=== PATIENT | male | born 1970 | race Caucasian/White ===

== ENCOUNTER → 2017-02-06 | Outpatient (CLI) | payer OTHER ==
[~2017-02-06] MED LIST: LXP/20 PO; MLXESC PO; ZYP15 PO
== END | disposition home or self-care (01) ==
LOC: C.LAB 21:03
DX: Z04.8 Encounter for examination and observation for other specified reasons (principal)

== ENCOUNTER 2017-03-16 08:25 | Observation (INO) | payer OTHER ==
[~2017-03-16] VITALS: Ht 182.9 cm; Wt 126.7 kg
[2017-03-16] MEDS ORDERED: KETOROLAC TROMETHAMINE 30 MG/ML VIAL IV STA (08:37)
[2017-03-16] MEDS ORDERED: ONDANSETRON INJ 2 MG/ML 2 ML VIAL IV STA (08:37)
[2017-03-16] MEDS ORDERED: SODIUM CHLORIDE 0.9% 1000ML 1,000 ML IV STA (08:37)
[2017-03-16] MEDS ORDERED: PROMETHAZINE HCL INJ 6.25 MG in SODIUM CHLORIDE 0.9% 50ML 50 ML IV STA (08:39)
--- NOTE | 2017-03-16 08:45 | EMERGENCY ROOM VISIT NOTE ---
History Report prepared by Armen: Chelsea Mina Under the Supervision of: Dr. Nik Ruiz M.D. First contact with patient: 08:35 Chief Complaint: ABDOMINAL PAIN Stated Complaint: STOMACH PAIN Nursing Triage Summary: left side abdominal pain since . hx diverticulitis. "I havent eaten since " History of Present Illness The patient is a 46 year old male who presents to the Emergency Room with complaints of worsening LLQ abdominal pain for the past 2 days. He is also experiencing nausea and vomiting. The patient rates his pain as an 8/10 in severity. He has been unable to eat or sleep due to his symptoms. He states that he has not eaten or had a bowel movement for the past two days. The patient has a history of diverticulitis. A couple of years ago he had 12-14 inches of his colon removed. He has not had any problems with diverticulitis since then. He does report that he has been under a lot of stress recently. The patient denies fevers, diarrhea, and urinary symptoms. Source of History: patient Onset: 2 days ago Position: abdomen (LLQ) Symptom Intensity: 8/10 Timing: worsening Modifying Factors (Worsening): eating Associated Symptoms: + nausea, + vomiting, No fevers, No diarrhea, No urinary symptoms Review of Systems See HPI for pertinent positives & negatives. A total of 10 systems reviewed and were otherwise negative. Past Medical & Surgical Medical Problems: (1) Diverticulitis Surgical Problems: (1) History of bowel resection Family History Heart disease Social History Smoking Status: Never Smoker Alcohol Use: occasionally Marital Status: in relationship Occupation Status: employed Current/Historical Medications No Active Prescriptions or Reported Meds Allergies Coded Allergies: No Known Allergies (Unverified , 03/16/17) Physical Exam Vital Signs Date Time Temp Pulse Resp B/P (MAP) Pulse Ox O2 Delivery O2 Flow Rate FiO2 03/16/17 10:40 64 18 160/87 96 Room Air 03/16/17 10:40 66 03/16/17 09:34 78 18 146/94 97 Room Air 03/16/17 08:29 36.9 78 18 154/103 95 Room Air Physical Exam GENERAL: Patient is in no acute distress. HEENT: No acute trauma, normocephalic atraumatic, mucous membranes moist, no nasal congestion, no scleral icterus. NECK: No stridor, no adenopathy, no meningismus, trachea is midline. LUNGS: Clear to auscultation bilaterally, no wheeze, no rhonchi, breath sounds equal. HEART: Without murmurs gallops or rubs, regular rate and rhythm. ABDOMEN: Soft, LLQ tenderness, bowel sounds positive, no hernias, no peritonitis. EXTREMITIES: No cyanosis or edema, full range of motion of all the joints without pain or difficulty, no signs for acute trauma. NEUROLOGIC: Oriented x 3, no acute motor or sensory deficits, no focal weakness. SKIN: No rash, no jaundice, no diaphoresis. Medical Decision & Procedures Laboratory Results 03/16/17 08:50 Red Blood Count 4.71, Mean Corpuscular Volume 92.4, Mean Corpuscular Hemoglobin 32.7, Mean Corpuscular Hemoglobin Concent 35.4, Mean Platelet Volume 9.9, Neutrophils (%) (Auto) 72.6, Lymphocytes (%) (Auto) 16.3, Monocytes (%) (Auto) 8.5, Eosinophils (%) (Auto) 0.9, Basophils (%) (Auto) 0.1, Neutrophils # (Auto) 5.07, Lymphocytes # (Auto) 1.14, Monocytes # (Auto) 0.59, Eosinophils # (Auto) 0.06, Basophils # (Auto) 0.01 03/16/17 08:50 Test 03/16/17 08:50 03/16/17 10:41 White Blood Count 6.98 K/uL (4.8-10.8) Red Blood Count 4.71 M/uL (4.7-6.1) Hemoglobin 15.4 g/dL (14.0-18.0) Hematocrit 43.5 % (42-52) Mean Corpuscular Volume 92.4 fL (80-100) Mean Corpuscular Hemoglobin 32.7 pg (25-34) Mean Corpuscular Hemoglobin Concent 35.4 g/dl (32-36) Platelet Count 277 K/uL (130-400) Mean Platelet Volume 9.9 fL (7.4-10.4) Neutrophils (%) (Auto) 72.6 % Lymphocytes (%) (Auto) 16.3 % Monocytes (%) (Auto) 8.5 % Eosinophils (%) (Auto) 0.9 % Basophils (%) (Auto) 0.1 % Neutrophils # (Auto) 5.07 K/uL (1.4-6.5) Lymphocytes # (Auto) 1.14 K/uL (1.2-3.4) Monocytes # (Auto) 0.59 K/uL (0.11-0.59) Eosinophils # (Auto) 0.06 K/uL (0-0.5) Basophils # (Auto) 0.01 K/uL (0-0.2) RDW Standard Deviation 43.1 fL (36.4-46.3) RDW Coefficient of Variation 12.8 % (11.5-14.5) Immature Granulocyte % (Auto) 1.6 % Immature Granulocyte # (Auto) 0.11 K/uL (0.00-0.02) Urine Color YELLOW Urine Appearance CLEAR (CLEAR) Urine pH 6.5 (4.5-7.5) Urine Specific [place] 1.021 (1.000-1.030) Urine Protein NEG (NEG) Urine Glucose (UA) NEG (NEG) Urine Ketones NEG (NEG) Urine Occult Blood NEG (NEG) Urine Nitrite NEG (NEG) Urine Bilirubin NEG (NEG) Urine Urobilinogen NEG (NEG) Urine Leukocyte Esterase NEG (NEG) Anion Gap 6.0 mmol/L (3-11) Est Creatinine Clear Calc Drug Dose 136.0 ml/min Estimated GFR () 110.8 Estimated GFR (Non- 95.6 BUN/Creatinine Ratio 12.8 (10-20) Calcium Level 8.8 mg/dl (8.5-10.1) Total Bilirubin 0.5 mg/dl (0.2-1) Aspartate Amino Transf (AST/SGOT) 28 U/L (15-37) Alanine Aminotransferase (ALT/SGPT) 57 U/L (12-78) Alkaline Phosphatase 83 U/L (45-117) Total Protein 7.9 gm/dl (6.4-8.2) Albumin 4.1 gm/dl (3.4-5.0) Globulin 3.8 gm/dl (2.5-4.0) Albumin/Globulin Ratio 1.1 (0.9-2) Lipase 157 U/L (73-393) Bedside Troponin I < 0.030 ng/ml (0-0.045) Laboratory results reviewed by me. Medications Administered Medications (Trade) Dose Ordered Sig/Aaron Route Start Time Stop Time Status Last Admin Dose Admin Ondansetron HCl (Zofran Inj) 4 mg NOW STAT IV 03/16/17 08:37 03/16/17 08:39 DC 03/16/17 08:58 4 MG Sodium Chloride 1,000 ml @ 999 mls/hr Q1H1M STAT IV 03/16/17 08:37 03/16/17 09:37 DC 03/16/17 08:58 999 MLS/HR Morphine Sulfate (MoRPHine SULFATE INJ) 4 mg Q30M PRN IV 03/16/17 08:45 03/30/17 08:44 03/16/17 09:33 4 MG Ketorolac Tromethamine (Toradol Inj) 30 mg NOW STAT IV 03/16/17 08:37 03/16/17 08:39 DC 03/16/17 08:59 30 MG Promethazine HCl 6.25 mg/Sodium Chloride 50.25 ml @ 204 mls/hr NOW STAT IV 03/16/17 08:39 03/16/17 08:53 DC 03/16/17 09:09 204 MLS/HR Lorazepam (Ativan Inj) 0.5 mg NOW STAT IV 03/16/17 11:05 03/16/17 11:06 DC 03/16/17 11:11 0.5 MG Aspirin (Aspirin Chew) 324 mg NOW STAT PO 03/16/17 11:05 03/16/17 11:06 DC 03/16/17 11:11 324 MG ECG Indication: chest pain Rate (beats per minute): 68 Rhythm: normal sinus Findings: T-wave inversion (Inferior), no ectopy, other (LVH) Comparison ECG Date: 04/30/14 Change: Inferior T-wave inversions are more pronounced. ED Course 0835: The patient was evaluated in room B6. A complete history and physical exam was performed. 0837: Toradol 30 mg IV, NSS 1000 ml @ 999 mls/hr IV, Zofran 4 mg IV 0839: Promethazine HCl 6.25mg/Sodium Chloride 50.25 ml @ 204 mls/hr IV 0845: Morphine sulfate 4 mg IV - PRN 1034: The patient is complaining of left-sided chest pressure. 1103: I updated the patient. He is very anxious. 1105: Aspirin 324 mg PO, Ativan 0.5 mg IV 1115: The patient was signed out to Dr. Curry at the change of shift. Medical Decision The patient is a 46 year old male who presents to the ED with complaints of worsening LLQ abdominal pain for the past 2 days. Differential diagnoses considered include diverticulitis, colitis, appendicitis, musculoskeletal pain, renal colic, UTI, pancreatitis, hernia, abscess. There is no leukocytosis or concerning anemia. No significant electrolyte abnormalities, kidney failure, hepatitis or pancreatitis. Urinalysis does not show infection or blood. On exam, the patient was somewhat tender in the left lower quadrant. He was not toxic or febrile. The patient received IV morphine, IV Toradol, IV Phenergan and IV Zofran, he was given IV saline. The patient is awaiting a CT of the abdomen and pelvis. This has been ordered for the possibility of diverticulitis. During the patient's stay, he developed some left-sided chest pain. A chest x- ray, EKG and cardiac enzyme testing were added on to his workup. EKG did show a sinus rhythm with some inverted T waves in the inferior leads, LVH was seen, no acute GA noted. The patient received oral aspirin and IV Ativan to see if this would help his chest discomfort. At this point, the patient's case is being assumed by Dr. Curry. Please see his notes for the results of the remaining tests and for the patient's final disposition. Medication Reconcilliation Current Medication List: was personally reviewed by me Blood Pressure Screening Patient's blood pressure: Elevated blood pressure Blood pressure disposition: Elevated BP felt to be situational Impression Primary Impression: LLQ abdominal pain Scribe Attestation The scribe's documentation has been prepared under my direction and personally reviewed by me in its entirety. I confirm that the note above accurately reflects all work, treatment, procedures, and medical decision making performed by me. Departure Information Dispostion Still a Patient Prescriptions No Active Prescriptions or Reported Meds Referrals No Doctor, Assigned (PCP) Patient Instructions My [facility]
[2017-03-16] MEDS: MoRPHine SULFATE 4 MG/ML 1 ML CARP\\VIAL IV PRN ×2 (08:59→09:33)
[2017-03-16 09:08] LABS: BASO % 0.1 %; BASO ABS # 0.01 K/uL (0-0.2); COMPLETE YES; EOS % 0.9 %; HEMATOCRIT 43.5 % (42-52); IG% 1.6 %; LYMPH % 16.3 %; LYMPH ABS # 1.14 K/uL (1.2-3.4); MEAN CELL VOLUME 92.4 fL (80-100); MEAN CORPUSCULAR HEMOGLOBIN 32.7 pg (25-34); MEAN CORPUSCULAR HGB CONC 35.4 g/dl (32-36); MEAN PLATELET VOLUME 9.9 fL (7.4-10.4); MONO % 8.5 %; NEUT % 72.6 %; PLATELET COUNT 277 K/uL (130-400); RED BLOOD COUNT 4.71 M/uL (4.7-6.1); WHITE BLOOD COUNT 6.98 K/uL (4.8-10.8)
[2017-03-16 09:20] LABS: URINE APPEARANCE CLEAR (CLEAR); URINE BILIRUBIN NEG (NEG); URINE COLOR YELLOW; URINE NITRITE NEG (NEG); URINE PH 6.5 (4.5-7.5); URINE SPECIFIC GRAVITY 1.021 (1.000-1.030); UROBILINOGEN NEG (NEG); ZZUR CULT IF INDIC CLEAN CATCH NO
[2017-03-16 09:23] LABS: MANUAL MICROSCOPIC REQUIRED? NO; REVIEW REQ? NO
[2017-03-16] MEDS ORDERED: OPTIRAY 320 IV PRN (09:30)
[2017-03-16 09:45] LABS: BUN/CREATININE RATIO 12.8 (10-20); CALCIUM 8.8 mg/dl (8.5-10.1); CREATININE 0.95 mg/dl (0.60-1.40); POTASSIUM 3.7 mmol/L (3.5-5.1)
[2017-03-16 09:48] LABS: ALB/GLOB RATIO 1.1 (0.9-2)
[2017-03-16] MEDS ORDERED: LORAZEPAM 2 MG/ML 1 ML VIAL IV STA (11:05)
[2017-03-16] MEDS ORDERED: ASPIRIN 81 MG CHEW PO STA (11:05)
--- NOTE | 2017-03-16 11:08 | DIAGNOSTIC IMAGING REPORT ---
CHEST ONE VIEW PORTABLE CLINICAL HISTORY: Atypical chest pain COMPARISON STUDY: 04/28/2014 FINDINGS: The heart is borderline enlarged. It is mild central vascular prominence without evidence of overt failure. There is no lobar consolidation. There are no pleural effusions.[ IMPRESSION: AP portable study. No evidence of focal pulmonary consolidation Electronically signed by: Nguyễn Combs M.D. 03/16/2017 11:07 AM Dictated Date/Time: 03/16/2017 11:06 AM
--- NOTE | 2017-03-16 11:35 | DIAGNOSTIC IMAGING REPORT ---
CT ABD/PELVIS IV AND ORAL CONT CLINICAL HISTORY: Abdominal pain, most pronounced in the left lower quadrant COMPARISON STUDY: None. TECHNIQUE: Following the IV administration of 93 mL of Optiray-320, CT scan of the abdomen and pelvis was performed from the lung bases to the proximal femurs. Images are reviewed in the axial, sagittal, and coronal planes. IV contrast was administered without complication. A dose lowering technique was utilized adhering to the principles of ALARA. CT DOSE: 1761.10 mGy.cm FINDINGS: Lower chest: There are mild basilar atelectatic changes. Liver: There is mild hepatic steatosis. No focal masses are visualized. Gallbladder: Unremarkable. Spleen: Borderline enlarged measuring 12.3 cm Pancreas: Unremarkable. Adrenal glands: Unremarkable. Kidneys: There is symmetric renal cortical enhancement. The kidneys are normal in size without hydronephrosis. Bowel: There are no transition zones to indicate bowel obstruction. There are postsurgical changes involving the colon with a sigmoid anastomosis. There is no acute diverticulitis. By history the appendix is surgically absent. Peritoneum: There is no intraperitoneal free air or abdominal ascites. Vasculature: The abdominal aorta is normal in course and caliber. Adenopathy: None. Pelvic viscera: The bladder, and pelvic viscera are unremarkable. Skeletal structures: No destructive osseous lesions are seen. There is stranding within the left anterior abdominal wall, likely secondary to a prior surgical site. IMPRESSION: 1. No acute intra-abdominal or pelvic findings 2. No evidence of bowel obstruction. No evidence of free air 3. No evidence of acute diverticulitis 4. No acute inflammatory changes Electronically signed by: Nguyễn Combs M.D. 03/16/2017 11:33 AM Dictated Date/Time: 03/16/2017 11:29 AM
[2017-03-16] MEDS ORDERED: LABETALOL HCL IV 5 MG/ML 20ML IV STA (12:00)
[2017-03-16] MEDS ORDERED: FENTANYL CITRATE INJ 50 MCG/1 ML 2 ML VIAL IV ONE (12:00)
[2017-03-16] MEDS ORDERED: MAGNESIUM HYDROXIDE SUSP 30 ML UDC PO PRN (12:30)
[2017-03-16] MEDS ORDERED: POLYETHYLENE (MIRALAX) 17 GM PACK PO PRN (12:30)
[2017-03-16] MEDS ORDERED: ALUMINUM/MAGNESIUM/SIMETH (MAALOX MAX) 30 ML UDC PO PRN (12:30)
[2017-03-16 13:20] VITALS: Ht 182.9 cm; Wt 126.7 kg
[2017-03-16] MEDS ORDERED: ALUMINUM/MAGNESIUM SUSP 30 ML UDC PO STA (13:21)
[2017-03-16] MEDS ORDERED: POLYETHYLENE (MIRALAX) 17 GM PACK PO ONE (13:30)
[2017-03-16] MEDS ORDERED: LIDOCAINE HCL 2% VISC SOLN 20 ML UDC PO ONE (13:30)
--- NOTE | 2017-03-16 13:39 | EMERGENCY ROOM VISIT NOTE ---
ED Visit Note First contact with patient: 11:30 46 yr old male arrived earlier in day with left flank pain. Initially evluated by Dr Ruiz who ordered CT a/p for evaluation of pain. While in department developed left chest pain radiating to left shoulder/arm. Resolved with ASA/ Pain meds and intial EKG/Trop notable for inferior T wave inversions. Signed out to me awaiting CT Scan findings. CT without any acute findings. Reviewed with patient repeat trop with DC if normal vs hospitalist evaluation and he does not feel comfortable with discharge given father MD at 48. No SHOB nor other symptoms beyond CP to suspect PE. Hospitalist consulted who will bring in for further evaluation/treatment.
[2017-03-16 14:00] VITALS: BP 160/99; PULSE 72; TEMP 36.6; O2SAT 93
[2017-03-16] MEDS ORDERED: IV FLUIDS COMPLETED PRN (14:00)
[2017-03-16 14:01] LABS: ESTIMATED AVERAGE GLUCOSE 111 mg/dl; HA1C FLAG Normal (Normal)
[2017-03-16] MEDS: MoRPHine SULFATE 2 MG/ML CARP IV PRN ×2 (14:15→15:53)
[2017-03-16 14:18] LABS: PROTHROMBIN TIME (PATIENT) 10.4 SECONDS (9.0-12.0)
--- NOTE | 2017-03-16 14:33 | History and Physical ---
History & Physical Date of Service Mar 16, 2017. History & Physical obs #[id number]
[2017-03-16] MEDS ORDERED: METOPROLOL TARTRATE 25 MG TAB PO ONE (15:00)
--- NOTE | 2017-03-16 15:37 | HISTORY & PHYSICAL EXAMINATION ---
DATE OF ADMISSION: 03/16/2017 CHIEF COMPLAINT: Abdominal pain, followed by a secondary chief complaint of chest pain. HISTORY OF PRESENT ILLNESS: The patient is a very pleasant 46-year-old male, who notes that he was actually feeling pretty good earlier in the day and on , he had gone to the gym, walked about 2 miles on the treadmill, felt good during that, but then Saturday night started with left lower abdominal pain, sometimes vague, sometimes sharp enough it double him over that was very reminiscent of pain whenever he has had diverticulitis before he notes that he had very severe diverticulitis, even including resection and so got his attention. His appetite has been down. He may be felt a little bit nauseated, but he has not had any fevers, chills, or sweats. This has been going on a couple of days and whenever it was not getting better, He came to the ER for further evaluation. He notes he did vomit this morning. During his GI workup and treatment, he then had a rather abrupt onset of substernal chest pressure that radiated to his arm and jaw, probably a degree of shortness of breath and once it went away, he also then felt extremely fatigued. He notes that pressure is almost gone now, it is not totally gone, but it is definitely less than it was. The left hand is still tingling, but no other significant symptoms. He is not short of breath and he does generally feel fatigued. He notes he did feel the sensation once before. It was actually whenever he was admitted here for chest pain back in 2013 when his workup was negative. Otherwise, he has not felt those symptoms. Specifically, he notes he was not feeling anything like that on the treadmill, even on and notes that he had been exercising to his regular without any new or worse exertional symptoms. REVIEW OF SYSTEMS: Most notably positive for the fact that he is working on lifestyle change for hypertension, hyperlipidemia, and a markedly positive family history for coronary artery disease and actually was to see his PCP this coming week or at least he was having labs and then he was going to see his PCP shortly thereafter with considerations needing to start blood pressure and/or cholesterol medicines depending on how he was doing. Review of systems is otherwise negative, except for as above. PAST MEDICAL HISTORY: Includes hypertension, hyperlipidemia, diverticulitis severe enough to require resection. PAST SURGICAL HISTORY: Colon resection in 2013, appendectomy. MEDICATIONS: None, although he does note that he is on the border of needing blood pressure and cholesterol medicines, but his PCP was giving him time to work on positive lifestyle change. SOCIAL HISTORY: He chews tobacco. He was a candidate, now he is down to about a can a week and is very motivated to quit. No significant alcohol. 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 FAMILY HISTORY: Most markedly positive for his dad having had a heart attack at 48. ALLERGIES: No known drug allergies. PHYSICAL EXAMINATION: VITAL SIGNS: Temperature 36.9, pulse 78, respiratory rate 18, blood pressure 154/103, and 95% on room air. GENERAL: He is awake, alert, oriented x3, pleasant, but very fatigued appearing, otherwise in no acute distress. HEENT: Normocephalic, atraumatic. Mucous membranes are moist. CARDIOVASCULAR: Regular. No rubs, murmurs, or gallops. LUNGS: Clear to auscultation bilaterally. No rales, rhonchi, or wheezes with good effort. ABDOMEN: Soft, moderately distended, moderately tender without guarding, rebound or rigidity, mostly in the left mid and lower abdomen. He also does have some epigastric discomfort reproducible to palpation. EXTREMITIES: Show no cyanosis, clubbing or edema. SKIN: Shows no rashes. No pallor or icterus. NEUROLOGIC: Shows cranial nerves II through XII to be grossly intact. Gross motor and sensory are intact. MUSCULOSKELETAL: Exam yields no gross lesions. MENTAL STATUS: Shows good recent and remote recall. Normal mood and affect. Good judgment and insight. LABS AND DIAGNOSTICS: His EKG shows flipped T's in II, III, and aVF, although this is fairly similar to prior. His chest x-ray shows no evidence of active disease. He has mild central vascular prominence. CT abdomen and pelvis shows findings post-sigmoid anastomosis, but no acute changes. No inflammatory changes. No diverticulitis. No free air. CBC shows a white count of 6.98 with 72.6% neutrophils, hemoglobin 15.4, platelets 277. Complete metabolic panel with sodium 135, potassium 3.7, chloride 104, CO2 of 25, BUN 12, creatinine 0.95, calcium 8.8, glucose 119. His total bilirubin is 0.5 with an AST of 28, ALT 57, alkaline phosphatase 83. His troponin is less than 0.030. Total protein 7.9, albumin 4.1, lipase 157, PT of 10.4. Urinalysis is yellow, clear. Specific gravity 1.021, pH of 6.5. ASSESSMENT AND PLAN: 1. Chest pain. Given that this comes on the heels of several days of abdominal pain that appears to be related to constipation (see below) and given that it came after nausea and vomiting this morning, it is exceedingly likely that his chest pain is upper GI related and probably ties together to his lower GI. However, he is very high risk for coronary artery disease given his age, family history of hypertension, hyperlipidemia, and tobacco use and therefore, certainly will be looking this as acute coronary syndrome until proven otherwise. Fortunately, his EKG does not show markedly acute findings, the flipped T's in II, III, and aVF while they could be positive, definitely appeared to be there on prior EKGs and his troponin is negative. We will trend serial troponins and as long as they are negative, check stress echo in the morning. In terms of the upper GI distress, we will give him Maalox and viscous lidocaine and then followup for ongoing symptoms. We will also obviously be following his blood pressure, checking a lipid panel, and checking in an A1c. 2. Abdominal pain. Fortunately, while the CT does not show any worrisome findings, it does show a significant amount of stool. He does note he has not had a bowel movement since the day of onset of his symptoms and it is very likely this is constipation related. We will provide him with a bowel regimen and follow with serial exams. 3. Hyperlipidemia. Check a lipid panel. If he is not at goal for his risks or if he plugs in as such in the ACC calculator by either ACC guidelines or [place] guidelines, we discussed that since his PCP was at the brink of starting him on a statin, likely if his numbers have not improved to mitigate his risk given his other risks and family history now would be the time. 4. Hypertension. We will follow. If it is all a stress response, we will not need to utilize medications, but again much like what the lipids, it appears he has working on lifestyle change with his PCP, who was at the brink of initiating medications and if his blood pressures do not follow in line, certainly will need to be treated. We will be adding an aspirin for cardiac risks as above as well. 5. Deep venous thrombosis prophylaxis, Lovenox. 6. Mild hyponatremia noted. 7. Nonfasting hyperglycemia, checking an A1c as above.
[2017-03-16 15:47] VITALS: BP 173/122; PULSE 73; TEMP 36.7; O2SAT 97
[2017-03-16] MEDS: ONDANSETRON INJ 2 MG/ML 2 ML VIAL IV PRN (15:52)
[2017-03-16] MEDS: ENOXAPARIN 40 MG/0.4 ML SYR SC SCH (15:59)
[2017-03-16] MEDS ORDERED: FAMOTIDINE IV INJ 20 MG in DEXTROSE 5% 100ML 100 ML IV SCH (18:15)
[2017-03-16] MEDS: HYDROmorphone INJ 0.5 MG/0.5 ML SYR IV PRN (18:44)
[2017-03-16 19:44] VITALS: BP 156/102; PULSE 75; TEMP 36.7; O2SAT 94
[2017-03-16] MEDS: FAMOTIDINE IV INJ 20 MG in SYRINGE 3 ML IV SCH (19:48)
[2017-03-17] VITALS (17 sets, daily range): BP systolic 143–183; BP diastolic 79–123; PULSE 62–91; TEMP 36.7–37.5; O2SAT 89–99
[2017-03-17] MEDS: HYDROmorphone INJ 0.5 MG/0.5 ML SYR IV PRN ×5 (00:05→20:53)
[2017-03-17] MEDS ORDERED: HydrALAZINE HCL 20 MG/ML VIAL IV. PRN (01:00)
[2017-03-17] MEDS: ONDANSETRON INJ 2 MG/ML 2 ML VIAL IV PRN ×3 (01:01→17:55)
[2017-03-17] MEDS: NITROGLYCERIN 0.4 MG SL PER TAB CHARGE SL PRN ×3 (01:06→01:17)
[2017-03-17] MEDS: ACETAMINOPHEN 325 MG TAB PO PRN ×3 (01:22→15:31)
[2017-03-17] MEDS ORDERED: METOPROLOL TARTRATE 1 MG/ML VIAL IV STA (02:24)
[2017-03-17] MEDS ORDERED: NURSING VERBAL MED ORDER ONE (02:30)
[2017-03-17] MEDS ORDERED: OPTIRAY 320 IV PRN (03:00)
[2017-03-17] MEDS: FAMOTIDINE IV INJ 20 MG in SYRINGE 3 ML IV SCH ×2 (06:00→17:55)
--- NOTE | 2017-03-17 07:08 | DIAGNOSTIC IMAGING REPORT ---
SINGLE VIEW CHEST CLINICAL HISTORY: Atypical chest pain. FINDINGS: An AP, portable, upright chest radiograph is compared to study dated 03/16/2017. The examination is degraded by portable technique, large body habitus, and patient rotation. The heart is top normal for projection. The mediastinal contour is within normal limits. The lungs and pleural spaces are clear. There is no pneumothorax. The bony thorax appears intact. IMPRESSION: No acute cardiopulmonary abnormality. Electronically signed by: Nik Laguerre M.D. 03/17/2017 7:07 AM Dictated Date/Time: 03/17/2017 7:06 AM
--- NOTE | 2017-03-17 07:49 | DIAGNOSTIC IMAGING REPORT ---
CT ANGIOGRAM OF THE CHEST CLINICAL HISTORY: Atypical chest pain. Hypoxia. COMPARISON STUDY: Chest radiograph dated 03/17/2017. TECHNIQUE: Following the IV administration of 94 cc of Optiray 320, CT angiogram of the chest was performed from the upper abdomen to the thoracic inlet utilizing the pulmonary embolus protocol. Images are reviewed in the axial, sagittal, and coronal planes. 3-D MIPS images are created and assessed. IV contrast was administered without complication. A dose lowering technique was utilized adhering to the principles of ALARA. CT DOSE: 772.07 mGy.cm FINDINGS: Thyroid: Imaged portions of the thyroid gland are normal in size and attenuation. Thoracic aorta: The thoracic aorta is normal in caliber and demonstrates standard 3-vessel arch anatomy. No dissection is seen. Pulmonary vasculature: The pulmonary trunk is normal in caliber. There are no filling defects identified in main, lobar, or segmental pulmonary branches to suggest pulmonary embolus. Heart: The heart is top normal in size and without pericardial effusion. Lungs and pleural spaces: Evaluation of the lung parenchyma is modestly degraded by motion artifact. Linear atelectasis is present at both lung bases. The lungs and pleural spaces are otherwise clear. The trachea and central airways are patent. Mediastinum: There is no mediastinal lymphadenopathy. Danielle: Clear. Axillae: There is no axillary lymphadenopathy. Upper abdomen: The liver is enlarged and steatotic. There is a tiny hiatal hernia. Partially visualized upper abdominal viscera is otherwise within normal limits. Skeletal structures: No lytic or blastic bony lesions are seen. IMPRESSION: 1. There is no evidence of pulmonary embolus in the main, lobar, or segmental pulmonary arteries. 2. The lungs are clear. 3. Hepatic steatosis. Electronically signed by: Nik Laguerre M.D. 03/17/2017 7:48 AM Dictated Date/Time: 03/17/2017 7:45 AM
[2017-03-17] MEDS: ASPIRIN 81 MG ECTAB PO SCH (08:21)
[2017-03-17] MEDS ORDERED: LISINOPRIL 20 MG TAB PO STA (08:57)
[2017-03-17] MEDS ORDERED: METOPROLOL TARTRATE 25 MG TAB PO SCH (09:00)
[2017-03-17] MEDS ORDERED: LISINOPRIL 20 MG TAB PO SCH (09:15)
[2017-03-17] MEDS: ATORVASTATIN 20 MG TAB PO SCH (09:33)
[2017-03-17] MEDS: ENOXAPARIN 40 MG/0.4 ML SYR SC SCH (15:31)
--- NOTE | 2017-03-17 20:53 | Progress Note ---
Subjective Date of Service: Mar 17, 2017. Subjective Pt evaluation today including: conversation w/ patient, conversation w/ family , physical exam, lab review, review of studies, review of inpatient medication list Pain: still with moderate chest pain, abdominal pain PO Intake: adequate Voiding: no voiding problems patient feeling well but still has pain in abdomen and chest no dyspnea, no nausea, no diaphoresis discussed results of testing, normal BMP, CBC, lipase, cardiac enzymes checked a sed rate and CRP, also normal CT abdomen without signs of infection or inflammation or obstruction, did show stool in colon CTA chest negative for PE discussed elevated blood pressure, patient very concerned discussed that he has hypertension and it is time to start anti-hypertensives started on Lopressor, will add Lisinopril discussed dyslipidemia and need for Lipitor discussed fatty liver changes and need for weight loss, dietary changes asked about bowels, he had a loose stool today Problem List Medical Problems: (1) LLQ abdominal pain Status: Acute Review of Systems Cardiac: + chest pain Abdomen: + pain All Other Systems: Reviewed and Negative Medications Current Inpatient Medications Medications (Trade) Dose Ordered Sig/Aaron Route Start Time Stop Time Status Last Admin Dose Admin Ioversol (Optiray 320) 100 ml UD PRN IV 03/16/17 09:30 03/20/17 09:29 Enoxaparin Sodium (Lovenox Inj) 40 mg Q24H SC 03/16/17 15:00 04/15/17 14:59 03/17/17 15:31 40 MG Acetaminophen (Tylenol Tab) 650 mg Q4H PRN PO 03/16/17 12:30 04/15/17 12:29 03/17/17 15:31 650 MG Al Hydrox/Mg Hydrox/Simethicone (Maalox Max Susp) 15 ml Q4H PRN PO 03/16/17 12:30 04/15/17 12:29 Magnesium Hydroxide (Milk Of Magnesia Susp) 30 ml Q12H PRN PO 03/16/17 12:30 04/15/17 12:29 Ondansetron HCl (Zofran Inj) 4 mg Q6H PRN IV 03/16/17 12:30 04/15/17 12:29 03/17/17 17:55 4 MG Nitroglycerin (Nitrostat Tab) 0.4 mg UD PRN SL 03/16/17 12:30 04/15/17 12:29 03/17/17 01:17 0.4 MG Aspirin (Ecotrin Tab) 81 mg QAM PO 03/17/17 09:00 04/16/17 08:59 03/17/17 08:21 81 MG Polyethylene (Miralax Powder Packet) 17 gm DAILY PRN PO 03/16/17 12:30 04/15/17 12:29 Miscellaneous (Iv Fluids Completed) 1 ea PRN PRN N/A 03/16/17 14:00 03/16/18 13:59 Metoprolol Tartrate (Lopressor Tab) 25 mg QAM PO 03/17/17 09:00 04/16/17 08:59 03/17/17 09:33 25 MG Hydromorphone HCl (Dilaudid Inj) 0.5 mg Q4 PRN IV 03/16/17 18:15 03/30/17 18:14 03/17/17 16:44 0.5 MG Famotidine 20 mg/ Syringe 5 ml @ 2.5 mls/min Q12@0600,1800 IV 03/16/17 19:00 04/15/17 18:59 03/17/17 17:55 2.5 MLS/MIN Hydralazine HCl (HydrALAZINE INJ) 5 mg Q8H PRN IV. 03/17/17 01:00 04/16/17 00:59 03/17/17 01:02 5 MG Ioversol (Optiray 320) 100 ml UD PRN IV 03/17/17 03:00 03/21/17 02:59 Atorvastatin Calcium (Lipitor Tab) 20 mg QAM PO 03/17/17 09:15 04/16/17 09:14 03/17/17 09:33 20 MG Lisinopril (Zestril Tab) 20 mg QAM PO 03/17/17 09:15 04/16/17 09:14 03/17/17 09:33 20 MG Objective Vital Signs Date Time Temp Pulse Resp B/P (MAP) Pulse Ox O2 Delivery O2 Flow Rate FiO2 03/17/17 19:46 36.7 67 18 157/104 (121) 96 Room Air 03/17/17 16:00 96 Room Air 03/17/17 16:00 Room Air 03/17/17 15:20 36.8 69 20 143/93 (110) 96 Room Air 03/17/17 12:00 Room Air 03/17/17 11:42 37.4 65 18 158/101 (120) 95 Room Air 03/17/17 10:54 36.8 62 16 178/118 (138) 95 Room Air 168/98 (121) 03/17/17 08:12 64 18 94 Room Air 03/17/17 08:00 Room Air 03/17/17 08:00 95 Room Air 03/17/17 07:15 36.9 72 18 156/98 (117) 98 Nasal Cannula 2.0 03/17/17 05:25 36.9 78 20 161/107 (125) 99 Nasal Cannula 2.0 161/106 (124) 03/17/17 04:00 Room Air 03/17/17 02:39 79 161/94 03/17/17 02:36 37.0 72 16 161/94 (116) 96 Nasal Cannula 2.0 03/17/17 01:22 91 18 159/79 (105) 93 Nasal Cannula 2.0 03/17/17 01:12 159/98 (118) 03/17/17 01:08 170/101 (124) 176/120 (138) 03/17/17 01:08 89 Room Air 03/17/17 01:06 37.5 81 17 167/107 (127) 94 Room Air 03/17/17 00:38 180/121 (140) 183/119 (140) 03/17/17 00:04 36.7 87 20 168/123 (138) 95 Room Air 03/17/17 00:00 Room Air Physical Exam General Appearance: no apparent distress, + obese Eyes: normal inspection, EOMI, sclerae normal ENT: normal ENT inspection, hearing grossly normal, pharynx normal Neck: supple, no adenopathy, no JVD, trachea midline Respiratory/Chest: chest non-tender, lungs clear, normal breath sounds, no respiratory distress, no accessory muscle use Cardiovascular: regular rate, rhythm, no edema, no gallop, no JVD, no murmur Abdomen: normal bowel sounds, non tender, soft, no organomegaly Extremities: normal range of motion, non-tender, normal inspection, no pedal edema, no calf tenderness, pelvis stable 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, no motor/sensory deficits, alert, normal mood/affect, oriented x 3 Skin: normal color, warm/dry, no rash Laboratory Results Last 24 Hours Test 03/17/17 02:23 03/17/17 06:56 03/17/17 14:17 Troponin I < 0.015 ng/ml < 0.015 ng/ml Triglycerides Level 169 mg/dl Cholesterol Level 250 mg/dl HDL Cholesterol 42 mg/dl LDL Cholesterol, Calculated 174 mg/dl VLDL Cholesterol, Calculated 34 mg/dl Cholesterol/HDL Ratio 6.0 Erythrocyte Sedimentation Rate 7 mm/hr C-Reactive Protein 1.90 mg/dl Assessment and Plan 46 yo male with obesity, high blood pressures in the office and dyslipidemia, presented with abdominal pain, vomiting, then chest pain and pressure - Chest pain: unclear etiology, still occurring intermittently at rest troponin negative, EKG normal, plan for stress test tomorrow risk factors: obesity, HTN, dyslipidemia, family hx (father had CT in his 40's) could be due to vomiting, but this wasn't excessive, just once PE ruled out with CTA chest Dilaudid helping with pain - Abdominal pain: again, unclear etiology suspected to be due to constipation, had once loose stool today, stools not completely emptied CT does not show infection, inflammation, pancreatitis - HTN: discussed with patient that he has hypertension he thought maybe it was pain or stress explained that diastolic pressure does not rise with stress, thus he has true hypertension started on Lopressor 25mg daily and Lisinopril 20mg daily will hold Lopressor tomorrow for stress test to allow for better heart rate will increase Lisinopril to 40mg daily should discharge on Lopressor 25mg BID and Lisinopril 40mg daily follow up with PCP - Dyslipidemia: total cholesterol and LDL elevated, will treat with Lipitor 40mg daily will need dietary changes, these were discussed in detail will need to repeat lipid panel in a few months - Fatty liver: seen on CT, discussed with patient that he needs to lose weight, best way to halt fatty liver - DVT prophylaxis: Lovenox
[2017-03-18] VITALS (8 sets, daily range): BP systolic 122–168; BP diastolic 85–114; PULSE 66–74; TEMP 36.7–37.1; O2SAT 94–96
[2017-03-18] MEDS: HYDROmorphone INJ 0.5 MG/0.5 ML SYR IV PRN ×2 (04:15→09:14)
[2017-03-18] MEDS ORDERED: hydrOXYzine HCL 25 MG TAB PO PRN (05:15)
[2017-03-18] MEDS: FAMOTIDINE IV INJ 20 MG in SYRINGE 3 ML IV SCH (05:51)
[2017-03-18] MEDS: ASPIRIN 81 MG ECTAB PO SCH (09:15)
[2017-03-18] MEDS: ATORVASTATIN 20 MG TAB PO SCH (09:15)
[2017-03-18] MEDS ORDERED: PERFLUTREN LIPID MICROSPHERE (DEFINITY) IV ONE (09:33)
[2017-03-18] MEDS: ONDANSETRON INJ 2 MG/ML 2 ML VIAL IV PRN (09:36)
--- NOTE | 2017-03-18 09:51 | EXERCISE STRESS ECHO ---
*NOTICE TO RECEIVING LIBERTARIAN AGENCY This information is strictly Confidential and protected under [place] law. [place] law prohibits you from making any further disclosure of this information unless further disclosure is expressly permitted by the written consent of the person to whom it pertains or is authorized by law. A general authorization for the release of medical or other information is not sufficient for this purpose. Hospital accepts no responsibility if the information is made available to any other person, INCLUDING THE PATIENT. Interpretation Summary * Name: MARYLIN SCOTT Study Date: 03/18/2017 07:23 AM BP: 149/85 mmHg * Patient Location: [facility]\S\N282\S\2 HR: 67 * : 1970 (M/d/yyyy) Gender: Male Height: 72 in * Age: 46 yrs Ethnicity: CA Weight: 288 lb * Ordering Physician: Dayne Garner * Performed By: Shannon Wilson RDCS * * Reason For Study: CHEST PAIN * BSA: 2.5 m2 * -- Conclusions -- * Left ventricular systolic function is normal. * Grade I diastolic dysfunction, (abnormal relaxation pattern). * Normal exercise echocardiogram without evidence of inducible ischemia * Compared to an echocardiogram obtained on 04/29/2014, there is no significant difference Procedure Details * ECHOEX, CPT #[id number] * ECHO DOPPLER, CPT #[id number] * ECHO COLOR FLOW, CPT #[id number] * A contrast injection of Definity was performed to improve assessment of LV function. * Contrast was injected into an intravenous site in the right arm. * One vial of Definity ultrasound contrast was diluted in normal saline to a total volume of 10 ml. A total of '4' ml of solution was administered during imaging. * Lot # [id number] of Definity utilized for procedure. * Expiration date 04/29. * The attending nurse who injected the contrast agent was JERE WELSH RN. Left Ventricular Findings with Stress * Normal exercise echocardiogram without evidence of inducible ischemia Left Ventricle * The left ventricle is grossly normal size. * There is normal left ventricular wall thickness. * Ejection Fraction = 60-65%. * Left ventricular systolic function is normal. * Grade I diastolic dysfunction, (abnormal relaxation pattern). * The left ventricular wall motion is normal. Right Ventricle * The right ventricle is grossly normal size. * The right ventricular systolic function is normal. Atria * The left atrium is borderline dilated. * Right atrial size is normal. Mitral Valve * The mitral valve is grossly normal. * Significant mitral regurgitation is absent. Tricuspid Valve * The tricuspid valve anatomy is normal. * Significant tricuspid regurgitation is absent. Aortic Valve * The aortic valve is normal in structure and function. * No hemodynamically significant valvular aortic stenosis. * There is no significant aortic regurgitation. Pericardium * There is no pericardial effusion. Stress Parameters * Normal baseline electrocardiogram. * Stress ECG: No ST changes. No arrhythmias. * The stress portion of this study was personally supervised by the undersigned interpreting physician. * Rest heart rate was '67' BPM. * Rest blood pressure was '149/85' * Maximum heart rate achieved was 150 bpm. * Maximum heart rate was 86 % of maximum age-predicted heart rate. * Maximum blood pressure was '219/83' * Total exercise time was '8:00' * Maximum exercise MET level achieved was '9.9' METS * Maximum treadmill speed was '3.30' miles per hour. * Maximum treadmill elevation was '14.00'% grade. * Exercise was terminated due to 'DYSPNEA' * The patient exhibited dyspnea during exercise. * Exercise was stopped due to dyspnea. * Target heart rate achieved. Left Ventricular Findings with Stress * Baseline EKG was normal There were no significant ST or T-wave changes with exercise or recovery Baseline echocardiographic images demonstrated preserved LV systolic function with normal wall motion There was normal augmentation of all melo without development of wall motion abnormalities during stress The patient did describe some mild dyspnea but no chest pain during exercise There was a hypertensive response to exercise Thompson treadmill score was 8 (low risk) MMode 2D Measurements and Calculations IVSd 1.4 cm IVSs 1.9 cm LVIDd 5.0 cm LVIDs 3.3 cm LVPWd 1.0 cm LVPWs 2.0 cm IVS/LVPW 1.3 FS 33.4 % EDV(Teich) 117.0 ml ESV(Teich) 44.6 ml EF(Teich) 61.9 % EDV(cubed) 123.3 ml ESV(cubed) 36.4 ml EF(cubed) 70.5 % % IVS thick 35.5 % % LVPW thick 86.6 % LV mass(C)d 236.1 grams LV mass(C)dI 94.9 grams/m\S\2 LV mass(C)s 273.1 grams LV mass(C)sI 109.8 grams/m\S\2 SV(Teich) 72.4 ml SI(Teich) 29.1 ml/m\S\2 SV(cubed) 86.9 ml SI(cubed) 35.0 ml/m\S\2 ACS 1.8 cm LA dimension 4.0 cm asc Aorta Diam 3.2 cm LVOT diam 2.0 cm LVOT area 3.3 cm\S\2 LVAd ap4 34.4 cm\S\2 LVLd ap4 9.1 cm EDV(MOD-sp4) 109.0 ml EDV(sp4-el) 110.2 ml LVAs ap4 18.2 cm\S\2 LVLs ap4 7.0 cm ESV(MOD-sp4) 39.7 ml ESV(sp4-el) 40.1 ml EF(MOD-sp4) 63.6 % EF(sp4-el) 63.6 % LVAd ap2 31.6 cm\S\2 LVLd ap2 8.6 cm EDV(MOD-sp2) 96.4 ml EDV(sp2-el) 98.7 ml LVAs ap2 16.9 cm\S\2 LVLs ap2 7.1 cm ESV(MOD-sp2) 35.8 ml ESV(sp2-el) 34.2 ml EF(MOD-sp2) 62.9 % EF(sp2-el) 65.3 % LVLd %diff -60 % EDV(MOD-bp) 104.5 ml LVLs %diff 1.1 % ESV(MOD-bp) 38.0 ml EF(MOD-bp) 63.6 % SV(MOD-sp4) 69.3 ml SI(MOD-sp4) 27.9 ml/m\S\2 SV(MOD-sp2) 60.6 ml SI(MOD-sp2) 24.4 ml/m\S\2 SV(MOD-bp) 66.5 ml SI(MOD-bp) 26.7 ml/m\S\2 SV(sp4-el) 70.0 ml SI(sp4-el) 28.2 ml/m\S\2 SV(sp2-el) 64.5 ml SI(sp2-el) 25.9 ml/m\S\2 Doppler Measurements and Calculations MV E max hernan 62.6 cm/sec MV A max hernan 73.0 cm/sec MV E/A 0.86 MV dec time 0.29 sec Ao V2 max 142.4 cm/sec Ao max PG 8.1 mmHg Ao max PG (full) 5.3 mmHg MARTIN(V,A) 1.9 cm\S\2 MARTIN(V,D) 1.9 cm\S\2 LV V1 max PG 2.8 mmHg LV V1 max 83.9 cm/sec MR max hernan 257.1 cm/sec MR max PG 26.4 mmHg PA V2 max 85.2 cm/sec PA max PG 2.9 mmHg
[2017-03-18] MEDS: LISINOPRIL 40 MG TAB PO SCH (10:21)
[2017-03-18] MEDS ORDERED: NAPROXEN 375 MG TAB PO PRN (12:15)
[2017-03-18 12:57] LABS: BASO % 0.3 %; BASO ABS # 0.02 K/uL (0-0.2); COMPLETE YES; EOS % 1.5 %; HEMATOCRIT 42.2 % (42-52); LYMPH % 14.1 %; LYMPH ABS # 0.84 K/uL (1.2-3.4); MEAN CORPUSCULAR HEMOGLOBIN 31.9 pg (25-34); MEAN CORPUSCULAR HGB CONC 34.4 g/dl (32-36); MEAN PLATELET VOLUME 9.6 fL (7.4-10.4); MONO % 11.9 %; NEUT % 71.2 %; PLATELET COUNT 269 K/uL (130-400); RED BLOOD COUNT 4.54 M/uL (4.7-6.1); WHITE BLOOD COUNT 5.97 K/uL (4.8-10.8)
[2017-03-18] MEDS ORDERED: FAMOTIDINE 20 MG TAB PO ONE (13:00)
--- NOTE | 2017-03-18 13:25 | Progress Note ---
Subjective Date of Service: Mar 18, 2017. 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, and local tender No fever and chill, no toothache, no problem eating and drinking Problem List Medical Problems: (1) LLQ abdominal pain Status: Acute Review of Systems Constitutional: No fever, No chills, No sweats, No weight loss, No weakness, No fatigue, No problem reported Eyes: No worsening of vision, No eye pain, No redness, No discharge, No diplopia ENT: + see HPI, + problem reported, No hearing loss, No unusual epistaxis, No nasal symptoms, No sore throat, No tinnitus, No dental problems, No trouble swallowing Respiratory: No cough, No sputum, No wheezing, No shortness of breath, No dyspnea on exertion, No dyspnea at rest, No hemoptysis Cardiac: No chest pain, No orthopnea, No PND, No edema, No claudication, No palpitations Abdomen: No pain, No nausea, No vomiting, No diarrhea, No constipation Musculoskeletal: No joint pain, No muscle pain, No swelling, No calf pain Male : No dysuria, No urinary frequency, No incontinence, No nocturia more than once/night, No slowing stream, No hematuria Neurologic: No memory loss, No paralysis, No weakness, No numbness/tingling, No vertigo, No balance problems Psychiatric: No depression symptoms, No anhedonism, No anxiety, No insomnia, No substance abuse Heme: No abnormal bleeding/bruising, No clotting problems, No swollen lymph nodes, No night sweats Endo: No fatigue, No excessive thirst, No excessive urination Skin: No rash, No itch, No new/changing skin lesions, No color change, No bleeding Objective Vital Signs Date Time Temp Pulse Resp B/P (MAP) Pulse Ox O2 Delivery O2 Flow Rate FiO2 03/18/17 12:00 Room Air 03/18/17 11:45 36.9 74 20 147/88 (107) 96 Room Air 03/18/17 10:19 72 122/85 (97) 03/18/17 08:00 Room Air 03/18/17 08:00 94 Room Air 03/18/17 07:23 37.0 66 20 146/91 (109) 94 03/18/17 05:13 36.7 74 20 168/114 (132) 95 Room Air 03/18/17 04:05 Room Air 03/18/17 00:05 Room Air 03/17/17 23:49 36.7 70 18 146/91 (109) 97 Room Air 03/17/17 20:05 Room Air 03/17/17 19:46 36.7 67 18 157/104 (121) 96 Room Air 03/17/17 16:00 96 Room Air 03/17/17 16:00 Room Air 03/17/17 15:20 36.8 69 20 143/93 (110) 96 Room Air Physical Exam General Appearance: WD/WN, no apparent distress Eyes: normal inspection, PERRL, EOMI, sclerae normal ENT: + pertinent finding (right submandibular jaw area was having mild tender and possible mild swelling, no us no obvious tender in the right temporal artery area, local no swelling, to this examination was no any tender) Neck: supple, no adenopathy, thyroid normal, no JVD, no carotid bruits, trachea midline Respiratory/Chest: chest non-tender, lungs clear, normal breath sounds, no respiratory distress, no accessory muscle use Cardiovascular: regular rate, rhythm, no edema, no gallop, no JVD, no murmur Abdomen: normal bowel sounds, non tender, soft, no organomegaly, no pulsatile mass Extremities: normal range of motion, non-tender, normal inspection, no pedal edema, no calf tenderness, normal capillary refill, pelvis stable 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, no motor/sensory deficits, alert, normal mood/affect, oriented x 3, + abnormal cerebellar tests Skin: normal color, warm/dry, no rash Lymphatic: no adenopathy Laboratory Results Last 24 Hours Test 03/17/17 14:17 03/18/17 12:44 Erythrocyte Sedimentation Rate 7 mm/hr Troponin I < 0.015 ng/ml C-Reactive Protein 1.90 mg/dl White Blood Count 5.97 K/uL Red Blood Count 4.54 M/uL Hemoglobin 14.5 g/dL Hematocrit 42.2 % Mean Corpuscular Volume 93.0 fL Mean Corpuscular Hemoglobin 31.9 pg Mean Corpuscular Hemoglobin Concent 34.4 g/dl Platelet Count 269 K/uL Mean Platelet Volume 9.6 fL Neutrophils (%) (Auto) 71.2 % Lymphocytes (%) (Auto) 14.1 % Monocytes (%) (Auto) 11.9 % Eosinophils (%) (Auto) 1.5 % Basophils (%) (Auto) 0.3 % Neutrophils # (Auto) 4.25 K/uL Lymphocytes # (Auto) 0.84 K/uL Monocytes # (Auto) 0.71 K/uL Eosinophils # (Auto) 0.09 K/uL Basophils # (Auto) 0.02 K/uL RDW Standard Deviation 43.8 fL RDW Coefficient of Variation 12.9 % Immature Granulocyte % (Auto) 1.0 % Immature Granulocyte # (Auto) 0.06 K/uL Assessment and Plan 46 yo male with obesity, high blood pressures in the office and dyslipidemia, presented with abdominal pain, vomiting, then chest pain and pressure on 2016 Chest pain: unclear etiology, troponin negative, EKG normal, plan for stress test tomorrow PE ruled out with CTA chest, stress echo was negative Discontinue Dilaudid Abdominal pain: again, unclear etiology, no more any abdominal pain totally resolved, eating drinking good suspected to be due to constipation, had once loose stool today, stools not completely emptied CT does not show infection, inflammation, pancreatitis HTN: discussed with patient that he has hypertension Dyslipidemia: total cholesterol and LDL elevated, will treat with Lipitor 40mg daily Fatty liver: seen on CT, discussed with patient that he needs to lose weight, best way to halt fatty liver Right mandible area pain, differential diagnosis include parotitis, post disease , submandibular lymph adenitis, temporal arteritis The temporal artery area only minimal tender, no major tender area was in mandible area, ESR was normal, temporal arteritis is very low possibility She has no fever and chill, and has no leukocytosis, beneath less chance of infectious disease going on Give naproxen by mouth for the pain as needed, advance diet, neck CT on ENT consult if needed DVT prophylaxis: Lovenox Med surge, possible discharge late afternoon or tomorrow morning Continued [facility] stay due to: home environment unsafe for pt Discharge planning: home
[2017-03-18] MEDS: ACETAMINOPHEN 325 MG TAB PO PRN ×2 (13:43→21:27)
[2017-03-18 14:32] LABS: BENZODIAZEPINE, URINE NEG (NEG); COCAINE,URINE NEG (NEG); PHENCYCLIDINE, URINE NEG (NEG)
[2017-03-18] MEDS ORDERED: OPTIRAY 320 IV PRN (15:45)
--- NOTE | 2017-03-18 15:48 | DIAGNOSTIC IMAGING REPORT ---
FACIAL-MAXILLOFACIAL WITH HISTORY: 46 years-old Male presents with acute right-sided facial pain. No reported trauma COMPARISON: None available. TECHNIQUE: Multiple axial CT images of the facial bones were obtained following the intravenous administration of 95 mL Optiray 320. A dose lowering technique was used consistent with the principals of [place]. FINDINGS: Multifocal periodontal disease is noted with moderate periapical cysts noted involving bilateral first maxillary molars. There are associated multiple dental caries. There is a cortical erosion are noted adjacent to the periapical cysts, notably seen medially involving the right first maxillary molar on image 89 series 4 and laterally involving the same tooth on image 88 of series 4. Mild polypoid mucosal thickening of the inferior right maxillary sinus. Mild left maxillary sinus disease also noted. The remaining paranasal sinuses are generally clear. Small bilateral kwabena bullosa. Mastoid air cells and middle ear cavities are clear. No acute facial bone fracture or dislocation identified. The patient has had multiple bilateral tooth extractions, notably involving the mandibular teeth. The imaged intracranial structures demonstrate no acute abnormality. There is no abnormal intra-axial or extra-axial enhancement identified. No significant soft tissue swelling or facial abscess. Orbits appear symmetric. IMPRESSION: 1. Multifocal periodontal disease with several periapical cysts involving bilateral first maxillary molars with areas of associated cortical erosion as above. No significant soft tissue swelling or focal abscess identified. 2. No abnormal enhancement. 3. Mild paranasal sinus disease as above. The above report was generated using voice recognition software. It may contain grammatical, syntax or spelling errors. Electronically signed by: Benjamín Zuñiga M.D. 03/18/2017 3:46 PM Dictated Date/Time: 03/18/2017 3:40 PM
[2017-03-18] MEDS: ENOXAPARIN 40 MG/0.4 ML SYR SC SCH (16:01)
[2017-03-18] MEDS ORDERED: NURSING VERBAL MED ORDER ONE (17:15)
[2017-03-18] MEDS ORDERED: TRAMADOL HCL 50 MG TAB ONE (17:18)
[2017-03-18] MEDS ORDERED: TRAMADOL HCL 50 MG TAB PO PRN (17:30)
[2017-03-18] MEDS ORDERED: TRAMADOL HCL 50 MG TAB PO ONE (17:30)
[2017-03-18] MEDS ORDERED: TEMAZEPAM 7.5 MG CAP PO ONE (18:40)
[2017-03-18] MEDS: FAMOTIDINE 20 MG TAB PO SCH (21:20)
[2017-03-18] MEDS ORDERED: CLONIDINE HCL 0.1 MG TAB PO STA (21:56)
[2017-03-19 00:17] VITALS: BP 119/81; PULSE 71; TEMP 36.7; O2SAT 97
[2017-03-19 07:32] VITALS: BP 154/96; PULSE 73; TEMP 36.9; O2SAT 96
[2017-03-19 08:00] VITALS: O2SAT 96
[2017-03-19] MEDS: ATORVASTATIN 20 MG TAB PO SCH (08:47)
[2017-03-19] MEDS: LISINOPRIL 40 MG TAB PO SCH (08:47)
[2017-03-19] MEDS: ASPIRIN 81 MG ECTAB PO SCH (08:48)
[2017-03-19] MEDS: FAMOTIDINE 20 MG TAB PO SCH (08:49)
[2017-03-19 09:13] VITALS: O2SAT 96
--- NOTE | 2017-03-19 14:51 | Discharge Summary ---
Discharge Summary Date of Service Mar 19, 2017. Discharge Summary Admission Date: Mar 16, 2017 at 12:25 Discharge Date: Mar 19, 2017 Discharge Disposition: Home (AMA) Principal Diagnosis: atypical Chest pain Problems/Secondary Diagnoses: Abdominal pain: HTN: Dyslipidemia: Right mandible area pain, Consultations: No Medication Reconciliation Medication Profile: No Active Prescriptions or Reported Meds Hospital Course 46 yo male with obesity, high blood pressures in the office and dyslipidemia, presented with abdominal pain, vomiting, then chest pain and pressure on 2016 Patient left AMA this morning Chest pain: unclear etiology, resolved troponin negative, EKG normal, plan for stress test tomorrow PE ruled out with CTA chest, stress echo was negative Abdominal pain upon admission: Resolved , unclear etiology, no more any abdominal pain totally resolved, eating drinking good suspected to be due to constipation, had once loose stool today, stools not completely emptied CT does not show infection, inflammation, pancreatitis HTN: discussed with patient that he has hypertension Dyslipidemia: total cholesterol and LDL elevated, will treat with Lipitor 40mg daily Fatty liver: seen on CT, discussed with patient that he needs to lose weight, best way to halt fatty liver Right mandible area pain, differential diagnosis include parotitis, post disease , submandibular lymph adenitis, temporal arteritis The temporal artery area only minimal tender, no major tender area was in mandible area, ESR was normal, temporal arteritis is very low possibility She has no fever and chill, and has no leukocytosis, beneath less chance of infectious disease going on Give naproxen by mouth for the pain as needed, advance diet, neck CT on maxillofacial surgeon consult if needed, Face CT was done, per report in below: " . Multifocal periodontal disease with several periapical cysts involving bilateral first maxillary molars with areas of associated cortical erosion as above. No significant soft tissue swelling or focal abscess identified. 2. No abnormal enhancement. 3. Mild paranasal sinus disease as above" Patient left AMA before seeing maxillofacial surgeon DVT prophylaxis: Lovenox Patient was notified that against medical advice may cause permanent organ damage or even , patient is awake, alert and orientated x3, I believe patient is competent to make decision by self. patient fully understands and wants to take all risks by self. Total Time Spent: Less than 30 minutes This includes examination of the patient, discharge planning, medication reconciliation, and communication with other providers. Discharge Instructions Please refer to the electronic Patient Visit Report (Discharge Instructions) for additional information. Additional Copies To Magdalene Joe PA-C
[2017-03-21 09:16] LABS: COD UR NEGATIVE NG/ML (CUTOFF=50); HYDROCOD UR NEGATIVE NG/ML (CUTOFF=50); HYDROMOR UR 233 NG/ML (CUTOFF=50); MORPHINE UR 64 NG/ML (CUTOFF=50); NORHYDROCODONE CONF UR NEGATIVE NG/ML (CUTOFF=50); OXYMORPH UR NEGATIVE NG/ML (CUTOFF=50)
== END 2017-03-19 09:30 | disposition left against medical advice (07) ==
LOC: C.EDB 08:27 → C.MED 12:25 → ENRESERV 13:01
PROVIDERS: ADMIT Family Medicine; ATTEND Hospitalist
DX: R07.89 Other chest pain (principal); R10.32 Left lower quadrant pain; Z82.49 Family history of ischemic heart disease and other diseases of the circulatory system; I10 Essential (primary) hypertension; E78.5 Hyperlipidemia, unspecified; F17.220 Nicotine dependence, chewing tobacco, uncomplicated; K76.0 Fatty (change of) liver, not elsewhere classified; E66.9 Obesity, unspecified; R68.84 Jaw pain

== ENCOUNTER 2024-12-19 09:36 | Observation (INO) ==
--- NOTE | 2024-12-19 10:04 | Emergency Department Note ---
Impression & Plan Hypertensive urgency, CAD (coronary artery disease), [place] coronary artery ED Provider Note NAME: MARYLIN SCOTT AGE: 54 SEX: M : 1970 ARRIVES VIA: Walk-In INFORMANT: Patient, ED PROVIDER(S): Denilson Pickard MD CHIEF COMPLAINT: Chest pain MEDICAL DECISION MAKING: Patient presents with the above. Patient does have risk factors as well as family history. Initial EKG does show some T wave inversions inferiorly. No obvious STEMI. Given the patient's symptoms IV and blood work were established and obtained and the patient was ordered aspirin and sublingual nitro. Patient also ordered IV fluids. Patient's blood work shows a normal white count H&H and platelet count. The patient's kidney function is unremarkable. Initial troponin negative. Patient still hypertensive patient did have mild improvement of chest pain after nitro and aspirin but will trial IV labetalol. Patient did receive a total of 3 nitro. Prior to the labetalol patient systolic 190s. Patient with at least moderate risk heart score. I did speak with alcohol as was Dr. Bass the patient would be admitted for further evaluation and treatment. Critical Care: I have personally spent 37 minutes of critical care time in direct management of this patient. This includes bedside care, interpretation of diagnostic studies, and testing, discussion with consultants, patient, and family members, and other require inpatient management activities. This 37 minutes is in excess of all separately billable procedures. Discussion w/ other healthcare providers: Dr. Bass inpatient medicine service Prior /Outside records reviewed: I reviewed part of an exercise stress echo completed December 01, 2020 at [facility] which was negative but had a reduced heart rate which could lower the sensitivity for ischemic evaluation. Patient only got to 79% of age-predicted max heart rate hypertensive to 242/119. Patient did have cardiac catheterization by Dr. Link December 09, 2020. He was noted to have 50% of the distal OM1 of his left circumflex. Patient also noted to have 40% stenosis at the level of the second diagonal branch of his LAD. Differential diagnosis: Cardiac ischemia, aortic dissection, pulmonary embolism, pneumothorax, pneumonia, pericarditis, myocarditis, GERD, cholecystitis, pancreatitis, musculoskeletal, as well as other pathologies were considered. Diagnostics, as interpreted by me: ECG: Normal sinus rhythm, rate of 71, normal intervals, normal axis T wave versions inferiorly in lead III and aVF no obvious STEMI. Motion artifact noted in the lateral leads. No priors for comparison. Cardiac monitoring: An order was placed for continuous cardiac monitoring. The monitor shows a rate of 75 with sinus rhythm. Patient was placed on pulse oximetry Medical decision rules: Heart score Imaging studies: I informally interpreted the patient's chest x-ray does not show obvious pneumonia with formal report to follow. HPI: Patient presents due to concern for chest pain. The patient states that he has left-sided chest pain that he describes as pressure radiation to the left arm and associated numbness/tingling. Notes that associated clamminess. States that he has not been trying to do too much so he does not know whether or not he has any associated exertional symptoms. Patient denies any shortness of breath. No leg swelling or calf pain no history of DVT or PE. He does report that he had a cardiac catheterization at [place] about 5 years ago and reports "40% blockage." Patient also states that he may have had a treadmill stress test but this was done several years ago at [facility]. Patient states that he has significant family history in parents and siblings with regard to heart attack and stroke. He states that his father had a heart attack in his 40s and had 3 total before he and states that his mother had a heart attack and stroke in her 40s as well. Patient states that he does take blood pressure medication as well as cholesterol medicine. The patient states that he has noticed his blood pressure to be elevated last several days up to 190s. He denies any increase in salt or processed food in the diet. Patient states that his sleep is okay. Relatively minimal caffeine intake with only about a cup daily. He denies any alcohol tobacco or drug use. No leg swelling or calf pain no history of DVT or PE. The patient denies any recent surgeries procedures or hospitalizations and no recent prolonged car plane travel. PAST MEDICAL HISTORY: See Below PAST SURGICAL HISTORY: See Below SOCIAL HISTORY: See Below HOME MEDICATIONS: See Below ALLERGIES: See Below VITALS: See Below PHYSICAL EXAMINATION: GENERAL: NAD, non-toxic. Wearing glasses. EYE EXAM: Normal conjunctiva. PERRL, no anisocoria and EOM's grossly intact w/o pain. OROPHARYNX: Moist mucus membranes, grossly normal dentition. NECK: Trachea midline, no stridor. LUNGS: Clear to auscultation. Normal chest wall mechanics. HEART: NSR, no MRG. ABDOMEN: Abdomen soft, non-tender, no masses, no rebound or guarding. BACK: No CVA TTP. SKIN: No rashes and no bruising. UPPER EXTREMITIES: Upper extremities are grossly normal. LOWER EXTREMITIES: Grossly normal, no edema. NEURO EXAM: Awake and alert, follows commands, no obvious facial asymmetry, normal speech, moves all 4 extremities. Past Med/Surg History Problem List (Updated 12/19/24 @ 13:23 by Denilson Pickard MD) Hypertensive urgency (Acute) Peripheral neuropathy Bipolar 1 disorder FELICITA (obstructive sleep apnea) Generalized joint pain Essential hypertension Mixed hyperlipidemia History of elevated glucose Equivocal stress echocardiogram CAD (coronary artery disease), [place] coronary artery (Acute) Family History Sister Diabetes Stroke, Onset Age: 44 Mother Hypertension Myocardial infarction Stroke [id number]? And again Early [id number]? Father , 06/20/2021 Hypertension Myocardial infarction Grandfather (Maternal) Myocardial infarction Grandfather (Paternal) Myocardial infarction Grandmother (Maternal) Myocardial infarction Grandmother (Paternal) Myocardial infarction Other Sudden Denies family history of Breast cancer Colorectal cancer Social History Smoking Status: Never smoker Hx Alcohol Use: Yes Alcohol type: beer Alcohol Intake Frequency: 2-3 x/Week Hx Substance Use: Yes Non-Prescribed Medications: Crack / Cocaine Preferred Language: Zambian Visual Impairment: Partially Limited Hearing Ability: Normal Beliefs That Will Affect Care: None marital status: Single Current Living Situation: Significant Other Current Living Situation Comment: Girlfriend and step daughter current occupational status: employed 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 How many Children do You have: 4 Feels Safe at Home: Yes Diet: regular caffeine: Yes (1 cup coffee per day ) during the past year weight has: increased > 10 lbs Dental Care, Regularly: Yes Physical Activity Frequency: Does not Exercise Seatbelt Use: always Sunscreen Use: Yes Assistive Devices: Glasses Allergies Allergies Allergy/AdvReac Type Severity Reaction Status Date / Time No Known Allergies Allergy Unverified 12/19/24 10:49 Home Meds Previous Rx's Medication Instructions Recorded atorvastatin 10 mg tablet 10 mg PO DAILY #30 tabs 11/23/24 lamotrigine 25 mg tablet 25 mg PO DAILY 30 days #30 tabs 11/23/24 losartan 50 mg tablet 50 mg PO DAILY #30 tabs 11/23/24 Results & Data (ED) Vital Signs Vital Signs - 24 hr 12/19/24 09:39 12/19/24 09:47 12/19/24 09:54 Temperature 36.1 C L Temperature Source Temporal Artery Scan Pulse Rate 82 79 Pulse Rate [Left Finger] Pulse Rate from SpO2 Sensor Respiratory Rate 20 Respiratory Effort / Characteristics Non-Labored Spontaneous Respiratory Depth Normal Respiratory Pattern Regular Blood Pressure 173/108 H Blood Pressure [Left Arm] Blood Pressure Mean 129 Blood Pressure Mean [Left Arm] Pulse Oximetry 97 Oxygen Delivery Method Room Air Room Air Sepsis Recent Fever Within 48 Hours No Sepsis New/Unexplained Change in Mental Status N/A Sepsis Action Taken by Nursing No Action Required 12/19/24 09:55 12/19/24 09:55 12/19/24 10:00 Temperature Temperature Source Pulse Rate Pulse Rate [Left Finger] 69 Pulse Rate from SpO2 Sensor Respiratory Rate 20 Respiratory Effort / Characteristics Non-Labored Spontaneous Respiratory Depth Normal Respiratory Pattern Regular Blood Pressure 186/97 H 147/106 H Blood Pressure [Left Arm] 187/97 H Blood Pressure Mean 125 117 Blood Pressure Mean [Left Arm] 127 Pulse Oximetry 98 Oxygen Delivery Method Room Air Sepsis Recent Fever Within 48 Hours Sepsis New/Unexplained Change in Mental Status Sepsis Action Taken by Nursing 12/19/24 10:19 12/19/24 10:21 12/19/24 10:33 Temperature Temperature Source Pulse Rate 75 Pulse Rate [Left Finger] Pulse Rate from SpO2 Sensor Respiratory Rate 18 Respiratory Effort / Characteristics Respiratory Depth Respiratory Pattern Blood Pressure 141/97 H 152/91 H Blood Pressure [Left Arm] Blood Pressure Mean 110 105 Blood Pressure Mean [Left Arm] Pulse Oximetry 95 Oxygen Delivery Method Room Air Sepsis Recent Fever Within 48 Hours Sepsis New/Unexplained Change in Mental Status Sepsis Action Taken by Nursing 12/19/24 11:15 12/19/24 11:30 12/19/24 11:38 Temperature Temperature Source Pulse Rate 76 67 69 Pulse Rate [Left Finger] Pulse Rate from SpO2 Sensor 75 67 Respiratory Rate 20 23 Respiratory Effort / Characteristics Respiratory Depth Respiratory Pattern Blood Pressure 164/93 H 158/94 H 160/89 H Blood Pressure [Left Arm] Blood Pressure Mean 116 115 Blood Pressure Mean [Left Arm] Pulse Oximetry 97 95 Oxygen Delivery Method Room Air Room Air Sepsis Recent Fever Within 48 Hours Sepsis New/Unexplained Change in Mental Status Sepsis Action Taken by [facility] Medications Current Medication List: was personally reviewed by me Laboratory Data Attestation: I reviewed the patient's lab results. 12/19/24 09:50 12/19/24 09:50 Lab Results 12/19/24 Range/Units 09:50 WBC 7.11 (4.8-10.8) K/ul RBC 5.39 (4.70-6.10) M/uL Hgb 17.1 (14.0-18.0) g/dl Hct 49.0 (42.0-52.0) % MCV 90.9 (80.0-100.0) fL MCH 31.7 (25.0-34.0) pg MCHC 34.9 (32.0-36.0) g/dL RDW Std Deviation 39.9 (36.4-46.3) fL RDW Coeff of [place] 12.0 (11.5-14.5) % Plt Count 358 (130-400) K/uL MPV 9.1 L (9.4-12.4) fL Immature Gran % (Auto) 1.0 % Neut % (Auto) 68.0 % Lymph % (Auto) 15.8 % Howard % (Auto) 8.4 % Eos % (Auto) 6.2 % Baso % (Auto) 0.6 % Neut # (Auto) 4.84 (1.40-6.50) K/uL Lymph # (Auto) 1.12 L (1.20-3.40) K/uL Howard # (Auto) 0.60 H (0.11-0.59) K/uL Eos # (Auto) 0.44 (0.00-0.50) K/uL Baso # (Auto) 0.04 (0.00-0.20) K/uL Immature Gran # (Auto) 0.07 (0.01-0.20) K/uL PT 10.5 (9.0-12.0) Seconds INR 1.0 (0.9-1.1) APTT 30 (21-31) Seconds PTT Ratio 1.1 Sodium 137 (136-145) mmol/L Potassium 3.8 (3.5-5.1) mmol/L Chloride 99 (98-107) mmol/L Carbon Dioxide 30 (21-32) mmol/L Anion Gap 8 (3-11) BUN 12 (6-23) mg/dl Creatinine 1.13 (0.6-1.4) mg/dl Est Cr Clr Drug Dosing 98.3 ml/min eGFR 77.24 BUN/Creatinine Ratio 10.6 (10-20) Glucose 114 H (70-99(Fasting)) mg/dl Calcium 10.1 (8.6-10.3) mg/dl Total Bilirubin 1.2 H (0.2-1.0) mg/dl AST 22 (13-39) U/L ALT 30 (7-52) U/L Alkaline Phosphatase 105 H (34-104) U/L Troponin I High Sens 5.3 (0-20) pg/ml Total Protein 8.2 (6.0-8.3) gm/dl Albumin 4.9 (3.4-5.0) gm/dl Globulin 3.3 (2.5-4.0) gm/dl Albumin/Globulin Ratio 1.5 (0.9-2) Lipase 28 (11-82) U/L Administered Medications Nitroglycerin (Nitroglycerin Sl 0.4 Mg/Tab Tab) 0.4 mg SL Q5M PRN PRN Reason: Chest Pain Stop: 01/18/25 09:55 Last Admin: 12/19/24 11:00 Dose: 0.4 mg Documented By: Admin: 12/19/24 10:36 Dose: 0.4 mg Documented By: Admin: 12/19/24 10:14 Dose: 0.4 mg Documented By: WAYNE Nitroglycerin (Nitroglycerin 2% Ointment 30gm Tube) 1 inch EXT Q6H [facility] Stop: 01/18/25 12:14 Last Admin: 12/19/24 12:39 Dose: 1 inch Documented By: ADRIA Discontinued Medications Aspirin (Aspirin Chew 324 Mg) 324 mg PO NOW STA Stop: 12/19/24 09:57 Last Admin: 12/19/24 10:14 Dose: 324 mg Documented By: WAYNE Sodium Chloride (Nss) 500 mls @ 999 mls/hr IV .Q31M STA Stop: 12/19/24 10:26 Last Infusion: 12/19/24 11:15 Dose: Infused Documented By: Admin: 12/19/24 10:16 Dose: 999 mls/hr Documented By: WAYNE Ioversol (Optiray 320 125ml) 115 ml IV ONCE ONE Stop: 12/19/24 13:10 Last Admin: 12/19/24 13:10 Dose: 115 ml Documented By: ZOLTAN Labetalol HCl (Labetalol Hcl Iv 5 Mg/Ml 20ml) 10 mg IV NOW STA Stop: 12/19/24 11:28 Last Admin: 12/19/24 11:38 Dose: 10 mg Documented By: WAYNE Lorazepam (Lorazepam 1 Mg Tab) 1 mg PO NOW STA Stop: 12/19/24 13:04 Last Admin: 12/19/24 13:17 Dose: 1 mg Documented By: FERMIN Imaging Data Radiologist's Impression: Chest X-Ray 12/19/24 09:56 XR chest 1V portable HISTORY: 54 years-old Male Chest pain, nonspecific COMPARISON: Chest radiograph and CT chest 03/17/2017 TECHNIQUE: AP view of the chest FINDINGS: Cardiac mediastinal and hilar silhouettes are unchanged. Mild right hemidiaphragmatic elevation. No pneumothorax, pleural effusion, airspace consolidation or pulmonary edema. Spondylotic spurring of the spine. IMPRESSION: No acute process. ACT 112: Negative or not required by law. The above report was generated using voice recognition software. It may contain grammatical, syntax or spelling errors. Electronically signed by: Lai Zuñiga M.D. 12/19/2024 10:18 AM Discharge Plan Visit Data Chief Complaint: Chest Pain Stated Complaint: CHEST PAINS ED Provider: Denilson Pickard Discharge Problem: Hypertensive urgency, CAD (coronary artery disease), [place] coronary artery Patient Disposition: Admitted As Inpatient Condition: Good Discharge Problem: CAD (coronary artery disease), [place] coronary artery Qualifiers: [place] vs. transplanted heart: [place] heart Associated angina: unspecified whether angina present Qualified Code(s): I25.10 - Atherosclerotic heart disease of [place] coronary artery without angina pectoris
[2024-12-19 10:07] LABS: Hematocrit (blood only) 49.0 % (42.0-52.0); Hemoglobin 17.1 g/dl (14.0-18.0); Immature Granulocytes # (auto) 0.07 K/uL (0.01-0.20); Immature Granulocytes % (auto) 1.0 %; Mean Corpuscular Hemoglobin 31.7 pg (25.0-34.0); Mean Corpuscular Volume 90.9 fL (80.0-100.0); Platelet Count 358 K/uL (130-400); RDW Standard Deviation 39.9 fL (36.4-46.3); Red Blood Count 5.39 M/uL (4.70-6.10); White Blood Count 7.11 K/ul (4.8-10.8)
[2024-12-19] MEDS: NITROGLYCERIN SL 0.4 MG/TAB TAB SL PRN (10:14)
[2024-12-19] MEDS: ASPIRIN CHEW 324 MG PO STA (10:14)
[2024-12-19] MEDS: SODIUM CHLORIDE 0.9% 500 ML IV STA (10:16)
[2024-12-19 10:19] LABS: INR 1.0 (0.9-1.1); Partial Thromboplastin Time 30 Seconds (21-31); Prothrombin Time 10.5 Seconds (9.0-12.0)
--- NOTE | 2024-12-19 10:19 | XRay Report ---
XR chest 1V portable HISTORY: 54 years-old Male Chest pain, nonspecific COMPARISON: Chest radiograph and CT chest 03/17/2017 TECHNIQUE: AP view of the chest FINDINGS: Cardiac mediastinal and hilar silhouettes are unchanged. Mild right hemidiaphragmatic elevation. No p neumothorax, pleural effusion, airspace consolidation or pulmonary edema. Spondylotic spurring of the spine. IMPRESSION: No acute process. ACT 112: Negative or not required by law. The above report was generated using voice recognition software. It may contain grammatical, syntax o r spelling errors. Electronically signed by: Lai Zuñiga M.D. 12/19/2024 10:18 AM
[2024-12-19 10:53] LABS: Alanine Aminotransferase 30.0 U/L (7-52); Albumin Globulin Ratio 1.5 (0.9-2); Alkaline Phosphatase 105.0 U/L (34-104); Anion Gap 8.0 (3-11); Bilirubin,Total 1.2 mg/dl (0.2-1.0); Blood Urea Nitrogen 12.0 mg/dl (6-23); Calcium 10.1 mg/dl (8.6-10.3); Carbon Dioxide 30.0 mmol/L (21-32); Chloride 99.0 mmol/L (98-107); Creatinine Clr Calc Pharmacy 98.3 ml/min; Globulin 3.3 gm/dl (2.5-4.0); Glucose 114.0 mg/dl (70-99(Fasting)); Lipase 28.0 U/L (11-82); Potassium 3.8 mmol/L (3.5-5.1); Sodium 137.0 mmol/L (136-145); Total Protein 8.2 gm/dl (6.0-8.3)
--- NOTE | 2024-12-19 11:36 | History & Physical Report ---
Date of Service December 19, 2024 Assessment & Plan (1) Hypertensive urgency: (2) Chest pain: (3) CAD (coronary artery disease), [place] coronary artery: (4) Bipolar 1 disorder: (5) FELICITA (obstructive sleep apnea): Plan 54 y/o man with moderate CAD on coronary angiogram in 2020, HTN, HLD and strong family history of CAD who came in for chest pressure, also very hypertensive on arrival to ED # Chest pain/pressure rad to L arm nonexertional -constant and at rest, moderate to high risk of MACE in near future # Known moderate CAD # HLD Quality/character of pain, history, and favorable response to NTG suggest angina. Nonexertional however and has been going on for hours with completely normal troponin, unchanged EKG, similar to previous CP presentations and CAD not very significant on 2020 angiogram. Could be primarily symptomatic hypertension. No hx VTE, no leg pain or swelling, no dyspnea hypoxia or tachycardia. Aortic dissection considered, normal appearing mediastinum on CXR, though some radiation of pressure to the left back. -ASA, NTG given in ED, labetalol 10 mg IV given in ED for BP -continue ASA, statin, control BP -monitor tele and serial cardiac enzymes. AM fasting lipid panel -discussed with senior sharepoint developer Dr. Ovalles - recommended CTPA because of multiple similar presentations (reviewed, no acute findings), stress test tomorrow AM -needs optimization of BP, lipids, addition of B-дмитрий and treatment for FELICITA # Hypertensive urgency -this may be provoking the chest pressure, but no evidence of ischemia thus far -continue ARB - increased dose to 100 mg -still having 6/10 CP and BP too high - started nitro paste q6h -had a favorable BP response to oral lorazepam so there is some component of anxiety -initiate B-дмитрий after stress test # Bipolar I disorder -continue lamotrigine # FELICITA -does not use CPAP, had it in the past but did not obtain a new machine after the recall -will legal counsel on benefits of resuming, wrt CV risk reduction and control of hypertension History of Present Illness Chief Complaint: chest pain Primary Care Provider: [place] Mcgrath 54 y/o man with HTN HLD CAD and +FH came to ED with chest pressure 2am got up at use bathroom developed left sided chest pressure radiating to L arm. [place] some numbness L arm/hand. No neck/jaw pain. No nausea/vomiting. [place] sweaty. Was severely hypertensive on arrival to ED Improvement from 9/10 pressure to 6/10 after several SL NTG 2020 stress echo suboptimal, cath nonobstructive CAD - reviewed previous records in EMR: According to Dr. Link's H&P from 12/09/20 Manuel had been hospitalized at [facility] with CP and hypertensive urgency. Had treadmill stress echo which was negative for ischemia but suboptimal heart rate and anginal sx reproduced with exercise, abnormal hypertensive response to exercise so study was terminated early. Underwent coronary angiogram by Dr. Link - reviewed cath report: moderate CAD and normal intracardiac pressures. Right dominant anatomy, Mild distal L main 10%, 40% mid LAD stenosis Strong family history of CAD, both parents with MIs in their 40s and grandpa rents with MD, stroke. ED course: BP 173/108 on arrival, came down to 150s/90s, dose of IV labetalol being given ntg x 3 with some improvement in chest pressure and BP aspirin given Allergies Allergy/AdvReac Type Severity Reaction Status Date / Time No Known Allergies Allergy Unverified 12/19/24 10:49 Home Medications Medication Instructions Recorded Confirmed Type atorvastatin 10 mg tablet 10 mg PO DAILY #30 tabs 11/23/24 12/19/24 Rx lamotrigine 25 mg tablet 25 mg PO DAILY 30 days #30 tabs 11/23/24 12/19/24 Rx losartan 50 mg tablet 50 mg PO DAILY #30 tabs 11/23/24 12/19/24 Rx Past Med/Surg History Problem List (Updated 12/19/24 @ 13:23 by Denilson Pickard MD) Hypertensive urgency (Acute) Peripheral neuropathy Bipolar 1 disorder FELICITA (obstructive sleep apnea) Generalized joint pain Essential hypertension Mixed hyperlipidemia History of elevated glucose Equivocal stress echocardiogram CAD (coronary artery disease), [place] coronary artery (Acute) Family History Sister Diabetes Stroke, Onset Age: 44 Mother Hypertension Myocardial infarction Stroke [phone]? And again Early [id number]? Father , 06/20/2021 Hypertension Myocardial infarction Grandfather (Maternal) Myocardial infarction Grandfather (Paternal) Myocardial infarction Grandmother (Maternal) Myocardial infarction Grandmother (Paternal) Myocardial infarction Other Sudden Denies family history of Breast cancer Colorectal cancer Social History Smoking Status: Never smoker Hx Alcohol Use: Yes Alcohol type: beer Alcohol Intake Frequency: 2-3 x/Week Hx Substance Use: No Preferred Language: Kyrgyz Visual Impairment: Partially Limited Hearing Ability: Normal Beliefs That Will Affect Care: None marital status: Single Current Living Situation: Spouse Current Living Situation Comment: Girlfriend and step daughter current occupational status: employed 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 How many Children do You have: 4 Other Information That Helps Us Care for You: No Feels Safe at Home: Yes Safety Concerns: Feels Safe At This Time Diet: regular caffeine: Yes (1 cup coffee per day ) during the past year weight has: increased > 10 lbs Dental Care, Regularly: Yes Physical Activity Frequency: Does not Exercise Seatbelt Use: always Sunscreen Use: Yes Assistive Devices: Glasses Review of Systems Review of Systems: All systems reviewed & are unremarkable except as noted in HPI & below Physical Exam Physical Exam: Last 24h vitals reviewed GEN: no acute distress, sitting in bed HEENT: pupils equal, sclerae anicteric, moist MM RESP: normal WOB, CTAB CV: reg no mrg ABD: soft/nt/nd +BT : no buckley SKIN: warm and dry, no generalized rashes NEURO: AOx person, place, and situation. Face symmetric, speech normal, moves 4 ext spontaneously and equally MOOD/AFFECT: anxious Results & Data Results & Data Vital Signs (Past 12 Hours) Vital Signs Temp Pulse Pulse Resp BP BP Pulse Ox 12/19/24 10:33 152/91 H 12/19/24 10:21 75 18 95 12/19/24 10:19 141/97 H 12/19/24 10:00 147/106 H 12/19/24 09:55 186/97 H 12/19/24 09:55 69 20 187/97 H 98 12/19/24 09:54 12/19/24 09:47 79 12/19/24 09:39 36.1 C L 82 20 173/108 H 97 O2 Del Method 12/19/24 10:33 12/19/24 10:21 Room Air 12/19/24 10:19 12/19/24 10:00 12/19/24 09:55 12/19/24 09:55 Room Air 12/19/24 09:54 Room Air 12/19/24 09:47 12/19/24 09:39 Room Air Laboratory Results CBC and CMP reviewed and they are essentially normal. Slight elevation of alk phos and slight elevation of bilirubin, not clinically significant. HS-trop geronimo normal at 5.3 Personally reviewed EKG tracing and compared to previous tracing in 2017: basically unchanged - NSR, TWIs in III and avf unchanged, possible LVH Personally reviewed CXR film and agree that it is clear with some elevation of right hemidiaphragm PG Care Time/CCT Total # of Minutes Spent Total Time Spent with Patient: Total time spent is greater than 50% in coordination of care (as documented) at patient's floor/unit and/or counseling patient: Coding Level of Care Code 65679 INT INP/OBS CARE 3/75MIN Diagnoses Hypertensive urgency I16.0 Chest pain R07.9 CAD (coronary artery disease), [place] coronary artery I25.10 Bipolar 1 disorder F31.9 FELICITA (obstructive sleep apnea) G47.33
[2024-12-19] MEDS: LABETALOL HCL IV 5 MG/ML 20ML IV STA (11:38)
[2024-12-19] MEDS: NITROGLYCERIN 2% OINTMENT 30GM TUBE EXT SCH (12:39)
[2024-12-19] MEDS: OPTIRAY 320 125ml IV ONE (13:10)
[2024-12-19] MEDS: LORazepam 1 MG TAB PO STA (13:17)
[2024-12-19] MEDS ORDERED: MAGNESIUM HYDROXIDE SUSP 30 ML UDC PO PRN (13:44)
[2024-12-19] MEDS ORDERED: ONDANSETRON INJ 2 MG/ML 2 ML VIAL IV PRN (13:44)
[2024-12-19] MEDS ORDERED: POLYETHYLENE (MIRALAX) 17 GM PACK PO PRN (13:44)
[2024-12-19] MEDS ORDERED: ALUMINUM/MAGNESIUM SUSP 30 ML UDC PO PRN (13:44)
[2024-12-19] MEDS ORDERED: MELATONIN 3 MG TAB PO PRN (13:44)
[2024-12-19] MEDS: ATORVASTATIN 10 MG TAB PO SCH (13:59)
[2024-12-19] MEDS: LOSARTAN POTASSIUM 50 MG TAB PO SCH (13:59)
[2024-12-19] MEDS: lamoTRIgine 25 MG TAB PO SCH (13:59)
--- NOTE | 2024-12-19 14:14 | CT Scan Report ---
CT angio chest PE protocol CT DOSE: 1038.62 mGy.cm HISTORY: 54 years-old Male with Chest Pain, eval for PE. Acute shortness breath with chest pain TECHNIQUE: Multiple CTA images of the chest were obtained after the intravenous administration of 1:1 5 ml Optiray. Coronal and sagittal MIPS were obtained from the axial data set and were submitted for review. All measurements were obtained according to NASCET criteria. A dose lowering technique was utilized adhering to the principles of ALARA. COMPARISON: 03/17/2017 FINDINGS: CTA: The heart is normal in size without pericardial effusion. Moderate coronary artery calcifications. No thoracic aortic aneurysm or dissection. Patency of the image great vessels. No pulmonary emboli. CT CHEST: No thyroid nodule or lymphadenopathy. No pneumothorax, pleural effusion, airspace consolidation or ov ert pulmonary edema. 3 mm nodules in the left upper lobe on image 151 series 4 is benign and stable. No suspicious pulmonary nodules or masses. Mild nonspecific distal esophageal wall thickening. Left-s ided rotator cuff calcific tendinosis. No acute fracture. IMPRESSION: 1. Unremarkable CTA of the chest. No pulmonary emboli. 2. Mild nonspecific distal esophageal wall thickening. Correlate clinically to exclude esophagitis. ACT 112: Negative or not required by law. The above report was generated using voice recognition software. It may contain grammatical, syntax o r spelling errors. Electronically signed by: Lai Zuñiga M.D. 12/19/2024 2:12 PM
[2024-12-20] MEDS: ACETAMINOPHEN 325 MG TAB PO PRN (03:42)
[2024-12-20] MEDS: ASPIRIN 81 MG CHEW PO SCH (07:59)
[2024-12-20 08:06] LABS: Anion Gap 5.0 (3-11); Blood Urea Nitrogen 13.0 mg/dl (6-23); Calcium 8.8 mg/dl (8.6-10.3); Carbon Dioxide 30.0 mmol/L (21-32); Chloride 101.0 mmol/L (98-107); Cholesterol 144.0 mg/dl (0-200); Creatinine Clr Calc Pharmacy 102.7 ml/min; Glucose 102.0 mg/dl (70-99(Fasting)); HDL Cholesterol 48.0 mg/dl; Potassium 4.0 mmol/L (3.5-5.1); Sodium 136.0 mmol/L (136-145); Triglycerides 88.0 mg/dl (0-150)
[2024-12-20 11:30] VITALS: BP 151/92; PULSE 66; RESP 16; TEMP 98.6; O2SAT 98
--- NOTE | 2024-12-20 17:50 | Discharge Summary ---
Discharge Summary Date of Service December 20, 2024 Principal Dx & Hospital Course #1 = Principal Diagnosis (1) Hypertensive urgency: (2) Chest pain: (3) CAD (coronary artery disease), agdaagux coronary artery: (4) Bipolar 1 disorder: (5) FELICITA (obstructive sleep apnea): Plan 54 y/o man with moderate CAD on coronary angiogram in 2020, HTN, HLD and strong family history of CAD who came in for chest pressure, also very hypertensive on arrival to ED # Chest pain/pressure rad to L arm nonexertional -constant and at rest, moderate to high risk of MACE in near future # Known moderate CAD # HLD Quality/character of pain, history, and favorable response to NTG suggest angina. Nonexertional however and has been going on for hours with completely normal troponin, unchanged EKG, similar to previous CP presentations and CAD not very significant on 2020 angiogram. Could be primarily symptomatic hypertension. No hx VTE, no leg pain or swelling, no dyspnea hypoxia or tachycardia. Aortic dissection considered, normal appearing mediastinum on CXR, though some radiation of pressure to the left back. -ASA, NTG given in ED, labetalol 10 mg IV given in ED for BP -CTPA negative for PE and no dissection or other pathology to explain chest pressure -losartan was increased to 100 mg, relatively bradycardic so left metoprolol dose the same, was on nitro paste overnight -continue ASA, statin, control BP -serial EKG and troponin were negative overnight -stress test done 12/20 without evidence of ischemia - discussed with wildlife control agent -needs optimization of BP, lipids, addition of B-дмитрий and treatment for FELICITA -discharged on increased dose of losartan, started low dose metoprolol succinate, resumption of ASA 81 mg daily, reviewed lipid panel from today and well controlled on atorvastatin (panel earlier this summer was much worse - may have been off statin then?) -counseled on importance of treating his FELICITA. Recommended he follow up with sleep medicine. -follow up with [facility] [place] in the future has been arranged - he just needs to call to schedule # Hypertensive urgency -this may be provoking the chest pressure, but no evidence of ischemia -had a favorable BP response to oral lorazepam out of proportion to other meds yesterday, so there was some component of anxiety -treated as above -BP improved to 124-151/77-93 this was prior to initiation of metoprolol # Bipolar I disorder -continue lamotrigine # FELICITA -does not use CPAP, had it in the past but did not obtain a new machine after the recall -counseled on benefits of resuming, wrt CV risk reduction and control of hypertension # Malaise - he has felt generally unwell last 3 or 4 days without other specific symptoms besides the chest pressure. He has been afebrile and no evidence of infection on admission workup. Possibly the symptoms are from the uncontrolled hypertension, or perhaps he has a viral syndrome. Regardless I do not see anything serious going on that requires ongoing hospitalization. His daughter is staying with him Saturday through when his returns to town. # neuropathy symptoms - has been seen by neurology in the past, perhaps at [facility]. I obtained starting neuropathy labs: TSH was wnl, A1c 5.5%, B12 on low side of normal range, SPEP which is still pending - recommend B12 supplement, at low normal range one might actually be deficient - may benefit from referral to spine surgeon or imaging Notes For Next Care Provider chest pressure, CTPA and cardiac stress test normal started oral B12 replacement SPEP pending recommend he follow up with sleep medicine for his untreated FELICITA - precontemplative at this time Medication Changes From Visit increased losartan added toprol xl 12.5 mg daily restarted ASA 81 mg oral B12 supplement Admission HPI Per Admitting Provider 54 y/o man with HTN HLD CAD and +FH came to ED with chest pressure 2am got up at use bathroom developed left sided chest pressure radiating to L arm. Stephens some numbness L arm/hand. No neck/jaw pain. No nausea/vomiting. Stephens sweaty. Was severely hypertensive on arrival to ED Improvement from 9/10 pressure to 6/10 after several SL NTG 2020 stress echo suboptimal, cath nonobstructive CAD - reviewed previous records in EMR: According to Dr. Link's H&P from 12/09/20 Manuel had been hospitalized at [facility] with CP and hypertensive urgency. Had treadmill stress echo which was negative for ischemia but suboptimal heart rate and anginal sx reproduced with exercise, abnormal hypertensive response to exercise so study was terminated early. Underwent coronary angiogram by Dr. Link - reviewed cath report: moderate CAD and normal intracardiac pressures. Right dominant anatomy, Mild distal L main 10%, 40% mid LAD stenosis Strong family history of CAD, both parents with MIs in their 40s and grandparents with MS, stroke. ED course: BP 173/108 on arrival, came down to 150s/90s, dose of IV labetalol being given ntg x 3 with some improvement in chest pressure and BP aspirin given Discharge Plan Discharge Items Patient Disposition: Home - Self-Care Reason For Visit: CHEST PAINS Discharge Diagnosis: Hypertensive urgency, chest pressure Condition on Discharge: Good Activity: Resume your previous activity Non-emergency contact: Primary Care Provider Call non-emergency contact if: you have any medication questions and your symptoms worsen Follow-up/Referrals: Cindy Garrido CRNP [Primary Care Provider] - 12/25/24 9:30 am (Primary Care hospital follow up scheduled on 12/25/24 at 9:30 with Cindy Garrido) Diet: Heart Healthy and Low Sodium (2gm) Addtl Attending Provider Instructions: You were treated for extremely high blood pressure and evaluated for chest pain CT angiogram of the chest was negative for blood clots in the lung or other things that could cause chest pain EKGs, troponin tests, and cardiac stress test were normal so it is unlikely that the pain was angina. Extremely high blood pressure can cause chest pressure. There are a lot of things you can do to slow the progression of coronary artery disease You should be taking baby aspirin daily to help prevent heart attack and progression of your coronary disease, which was moderate on heart cath last year. Your blood pressure is better but still high. We increased the losartan dose and will add small dose of metoprolol succinate, which is good for protecting your heart and will help lower your BP. Its extremely important to continue your sleep apnea treatment - untreated sleep apnea aggravates high blood pressure and increases the risk of heart attacks and strokes as well as heart failure. It has been some time so you'll probably have to follow up with sleep medicine to get a prescription for a new CPAP machine. Your cholesterol is well controlled on the atorvastatin. Heart healthy diet and exercise are also very important. I sent some of the initial tests for neuropathy workup. TSH was normal. Vitamin B12 level was low normal / borderline and you will benefit from a B12 supplement. Low B12 can cause anemia, neuropathy and other neurologic problems, cognitive changes. I sent an SPEP test (screening test for myeloma / abnormal proteins in the blood) and this is still pending - usually takes a few weeks to get results. It was a pleasure taking care of you in the hospital, Mireya Rider MD Pending Studies at Discharge: Yes (SPEP) Stand-Alone Forms: My [facility], Work/School Release, Smoking Cessation Medications and DC Order Prescriptions: New losartan 50 mg Tablet 100 mg PO QAM Qty: 30 0RF aspirin [Children's Aspirin] 81 mg Tablet,Chewable 81 mg PO QAM Qty: 0 0RF Rx Instructions: buy over the counter cyanocobalamin (vitamin B-12) 500 mcg Tablet 1,000 mcg PO QAM Qty: 0 0RF Rx Instructions: buy over the counter metoprolol succinate 25 mg tablet extended release 24 hr 12.5 mg PO DAILY Qty: 14 0RF Continued lamotrigine 25 mg tablet 25 mg PO DAILY 30 Days Qty: 30 5RF atorvastatin 10 mg tablet 10 mg PO DAILY Qty: 30 2RF Discontinued losartan 50 mg tablet 50 mg PO DAILY Qty: 30 2RF Discharge Orders: Discharge Order (Routine); Ordered 12/20/24 Ordered By: Mireya Rider Admission Data Admit Date/Time: 12/19/24 11:43 Attending Provider: Mireya Rider Admit Provider: Mireya Rider Primary Care Provider: Cindy Garrido Other Providers: Mireya Rider Other Interventions: Discharge Summary Assessment (RN) Last Done: 12/20/24 12:25 Hospital Stay Data Consultations 12/19/24 11:04 ED Decision to Admit Stat Diagnostic Imagining Performed 12/19/24 12:50 CT angio chest PE protocol Stat Pending Results Patient Have Any Pending Studies at Discharge: Yes (SPEP) Discharge Instructions Given to Patient (Per Discharging Provider) You were treated for extremely high blood pressure and evaluated for chest pain CT angiogram of the chest was negative for blood clots in the lung or other things that could cause chest pain EKGs, troponin tests, and cardiac stress test were normal so it is unlikely that the pain was angina. Extremely high blood pressure can cause chest pressure. There are a lot of things you can do to slow the progression of coronary artery disease You should be taking baby aspirin daily to help prevent heart attack and progression of your coronary disease, which was moderate on heart cath last year. Your blood pressure is better but still high. We increased the losartan dose and will add small dose of metoprolol succinate, which is good for protecting your heart and will help lower your BP. Its extremely important to continue your sleep apnea treatment - untreated sleep apnea aggravates high blood pressure and increases the risk of heart attacks and strokes as well as heart failure. It has been some time so you'll probably have to follow up with sleep medicine to get a prescription for a new CPAP machine. Your cholesterol is well controlled on the atorvastatin. Heart healthy diet and exercise are also very important. I sent some of the initial tests for neuropathy workup. TSH was normal. Vitamin B12 level was low normal / borderline and you will benefit from a B12 supplement. Low B12 can cause anemia, neuropathy and other neurologic problems, cognitive changes. I sent an SPEP test (screening test for myeloma / abnormal proteins in the blood) and this is still pending - usually takes a few weeks to get results. It was a pleasure taking care of you in the hospital, Mireya Rider MD Total Time Total Time Spent Total Time Spent (In Minutes): I personally spent: 40 minutes today on clinical care activities including: reviewing chart notes and vital signs reviewing labs reviewing studies discussion with wildlife control agent examining and counseling the patient writing orders writing prescriptions, discharge instructions documentation Coding Level of Care Code 74006 INP/OBS DISCH >30 MIN Diagnoses Hypertensive urgency I16.0 Chest pain R07.9 CAD (coronary artery disease), agdaagux coronary artery I25.10 Associated angina: unspecified whether angina present [place] vs. transplanted heart: agdaagux heart Bipolar 1 disorder F31.9 FELICITA (obstructive sleep apnea) G47.33
--- NOTE | 2024-12-21 07:56 | Electrocardiogram Report ---
Test Reason : Blood Pressure : */* mmHG Vent. Rate : 71 BPM Atrial Rate : 71 BPM P-R Int : 152 ms QRS Dur : 86 ms QT Int : 378 ms P-R-T Axes : 22 -2 -7 degrees QTcB Int : 410 ms Normal sinus rhythm Minimal voltage criteria for LVH, may be normal variant ( R in aVL ) Borderline ECG When compared with ECG of 18-Mar-2017 04:42, No significant change was found Confirmed by Madison Ovalles ([id number]) on 12/21/2024 7:55:54 AM Referred By: REFERRED SELF Confirmed By: Madison Ovalles
--- NOTE | 2024-12-21 07:56 | Electrocardiogram Report ---
Test Reason : Blood Pressure : */* mmHG Vent. Rate : 63 BPM Atrial Rate : 63 BPM P-R Int : 138 ms QRS Dur : 90 ms QT Int : 416 ms P-R-T Axes : -6 22 -19 degrees QTcB Int : 425 ms Normal sinus rhythm Nonspecific T wave abnormality Left ventricular hypertrophy Abnormal ECG When compared with ECG of 19-Dec-2024 09:46, (unconfirmed) No significant change was found Confirmed by Madison Ovalles ([place]) on 12/21/2024 7:56:09 AM Referred By: REFERRED SELF Confirmed By: Madison Ovalles
--- NOTE | 2024-12-21 08:13 | Electrocardiogram Report ---
Test Reason : Blood Pressure : */* mmHG Vent. Rate : 59 BPM Atrial Rate : 59 BPM P-R Int : 136 ms QRS Dur : 104 ms QT Int : 436 ms P-R-T Axes : -2 7 -1 degrees QTcB Int : 431 ms Sinus bradycardia Minimal voltage criteria for LVH, may be normal variant ( R in aVL ) Borderline ECG When compared with ECG of 19-Dec-2024 12:57, (unconfirmed) No significant change was found Confirmed by Madison Ovalles ([id number]) on 12/21/2024 8:12:54 AM Referred By: REFERRED SELF Confirmed By: Madison Ovalles
[2024-12-21] MEDS ORDERED: CYANOCOBALAMIN (B-12) 500 MCG TABLET PO SCH (09:00)
[2024-12-23 07:43] LABS: Albumin 3.7 g/dL (3.8-4.8); Beta-1-Globulin 0.4 g/dL (0.4-0.6); Gamma Globulin 0.8 g/dL (0.8-1.7); Total Protein 6.3 g/dL (6.1-8.1)
== END 2024-12-20 13:02 | disposition home or self-care (01) ==
LOC: EDINP 09:36 → ED 09:36 → 2S 13:32

== ENCOUNTER 2024-12-29 10:15 | Inpatient (IN) ==
--- NOTE | 2024-12-29 10:48 | Emergency Department Note ---
Impression & Plan Suicidal thoughts Admission to [facility]. ED Provider Note HPI: History obtained from patient. The patient is a 54-year-old gentleman who presents the emergency department with a chief complaint of increasing depression and passive suicidal thoughts. Patient states that he has a history of depression, he states that recently he has had some worsening symptoms over the past several weeks. Patient states that he is home alone often because his travels for work and he has been abusing alcohol and cocaine. Patient states "when I go to bed at night sometimes I pray that I will not wake up". Patient states that he does not feel safe at home alone. On arrival here to the ED the patient is alert, he is hemodynamically stable, he does not appear to be in any acute physical distress. Patient is cooperative with history and exam on arrival. Patient does note that he had one inpatient psychiatric stay years ago outside of the [facility] for similar symptoms. ROS: - Per HPI Differential Diagnosis: Anxiety/depression, suicidal ideation, polysubstance abuse, amongst other potential pathologies. *Outpatient medications and allergy history reviewed. PE: General: Alert HEENT: Normocephalic, trachea midline Eyes: Extraocular eye movement is intact, no scleral erythema Pulmonary: Clear to auscultation bilaterally, no wheezing Cardio: Regular rate and rhythm GI: Abdomen is soft to palpation : No suprapubic tenderness MSK: No evidence of trauma or malformation of the extremities, no edema Skin: No evidence of rash Neuro: Alert, no focal deficits Psychiatric: Cooperative EKG: (As interpreted by myself): Rate: 63 Rhythm: Normal sinus rhythm Intervals: Within normal limits ST changes: No ST elevation Time: 1536 Medical Decision Making: Medical clearance lab work was obtained. Lab work shows no leukocytosis, hemoglobin is normal, platelet count is normal, CMP does not show any evidence of any critical findings. Urinalysis shows no evidence of blood or infection, urine drug screen is positive for cocaine. Alcohol level is negative, COVID testing is negative. EKG per my interpretation shows normal sinus rhythm with a rate of 63. Patient was medically cleared for psychiatric assessment/possible placement. Given the patient's anxiety and depression as well as passive suicidal ideation, he was assessed by case management for potential placement. Patient was assessed by [facility] for placement for inpatient psychiatric care, he was eventually excepted. Patient was transferred to [facility] in stable condition for further management. Consultants/Discussions held with other healthcare providers: - Case management Diagnosis: 1. Anxiety/depression, acute 2. Passive suicidal thoughts, acute 3. History of cocaine abuse Disposition: Admission to 3 . Bob Rasmussen DO Emergency Medicine Past Med/Surg History Problem List (Updated 12/29/24 @ 15:57 by Bob Rasmussen DO) Suicidal thoughts (Acute) Peripheral neuropathy Bipolar 1 disorder FELICITA (obstructive sleep apnea) Generalized joint pain Essential hypertension Mixed hyperlipidemia History of elevated glucose Equivocal stress echocardiogram CAD (coronary artery disease), hoopa coronary artery (Acute) Medical History (Updated 12/29/24 @ 15:57 by Bob Rasmussen DO) Hypertensive urgency Family History Sister Diabetes Stroke, Onset Age: 44 Mother Hypertension Myocardial infarction Stroke Father Hypertension Myocardial infarction Grandfather (Maternal) Myocardial infarction Grandfather (Paternal) Myocardial infarction Grandmother (Maternal) Myocardial infarction Grandmother (Paternal) Myocardial infarction Other Sudden Denies family history of Breast cancer Colorectal cancer Social History Smoking Status: Never smoker Hx Alcohol Use: Yes Alcohol type: beer Alcohol Intake Frequency: 2-3 x/Week Hx Substance Use: No Preferred Language: Portuguese Visual Impairment: Partially Limited Hearing Ability: Normal Beliefs That Will Affect Care: None marital status: Single Current Living Situation: Spouse Current Living Situation Comment: Girlfriend and step daughter current occupational status: employed 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 How many Children do You have: 4 Feels Safe at Home: Yes Diet: regular caffeine: Yes (1 cup coffee per day ) during the past year weight has: increased > 10 lbs Dental Care, Regularly: Yes Physical Activity Frequency: Does not Exercise Seatbelt Use: always Sunscreen Use: Yes Gender Identity: Male Assistive Devices: Glasses Allergies Allergies Allergy/AdvReac Type Severity Reaction Status Date / Time No Known Allergies Allergy Unverified 12/21/24 10:51 Home Meds Previous Rx's Medication Instructions Recorded atorvastatin 10 mg tablet 10 mg PO DAILY #30 tabs 11/23/24 lamotrigine 25 mg tablet 25 mg PO DAILY 30 days #30 tabs 11/23/24 aspirin 81 mg chewable tablet 81 mg PO QAM #0 tabs 12/20/24 (Children's Aspirin) cyanocobalamin (vitamin B-12) 500 1,000 mcg (2 x 500 mcg) PO QAM #0 12/20/24 mcg tablet tabs losartan 50 mg tablet 100 mg (2 x 50 mg) PO QAM #30 tabs 12/20/24 buspirone 5 mg tablet 5 mg PO BID #60 tabs 12/21/24 propranolol 60 mg capsule,24 60 mg PO HS #30 caps 12/21/24 hr,extended release Results & Data (ED) Vital Signs Vital Signs - 24 hr 12/29/24 10:26 12/29/24 13:15 Temperature 37.0 C Temperature Source Oral Pulse Rate 71 Pulse Rate [Finger] 69 Respiratory Rate 20 18 Respiratory Effort / Characteristics Non-Labored Spontaneous Non-Labored Spontaneous Respiratory Depth Normal Normal Respiratory Pattern Regular Regular Blood Pressure 160/101 H Blood Pressure [Right Arm] 161/97 H Blood Pressure Mean 120 Blood Pressure Mean [Right Arm] 118 Pulse Oximetry 97 97 Oxygen Delivery Method Room Air Room Air Sepsis Recent Fever Within 48 Hours No Sepsis New/Unexplained Change in Mental Status No Sepsis Action Taken by Nursing No Action Required Laboratory Data 12/29/24 11:10 12/29/24 11:10 Lab Results 12/29/24 12/29/24 12/29/24 Range/Units 10:48 11:10 13:26 WBC 6.56 (4.8-10.8) K/ul RBC 5.03 (4.70-6.10) M/uL Hgb 16.1 (14.0-18.0) g/dl Hct 46.1 (42.0-52.0) % MCV 91.7 (80.0-100.0) fL MCH 32.0 (25.0-34.0) pg MCHC 34.9 (32.0-36.0) g/dL RDW Std Deviation 40.5 (36.4-46.3) fL RDW Coeff of Corbin 12.2 (11.5-14.5) % Plt Count 312 (130-400) K/uL MPV 9.3 L (9.4-12.4) fL Immature Gran % (Auto) 1.2 % Neut % (Auto) 66.0 % Lymph % (Auto) 14.8 % Payne % (Auto) 10.5 % Eos % (Auto) 6.9 % Baso % (Auto) 0.6 % Neut # (Auto) 4.33 (1.40-6.50) K/uL Lymph # (Auto) 0.97 L (1.20-3.40) K/uL Payne # (Auto) 0.69 H (0.11-0.59) K/uL Eos # (Auto) 0.45 (0.00-0.50) K/uL Baso # (Auto) 0.04 (0.00-0.20) K/uL Immature Gran # (Auto) 0.08 (0.01-0.20) K/uL Sodium 137 (136-145) mmol/L Potassium 3.7 (3.5-5.1) mmol/L Chloride 100 (98-107) mmol/L Carbon Dioxide 31 (21-32) mmol/L Anion Gap 6 (3-11) BUN 16 (6-23) mg/dl Creatinine 1.13 (0.6-1.4) mg/dl Est Cr Clr Drug Dosing 99.0 ml/min eGFR 77.24 BUN/Creatinine Ratio 14.2 (10-20) Glucose 99 (70-99(Fasting)) mg/dl Calcium 9.7 (8.6-10.3) mg/dl Total Bilirubin 1.0 (0.2-1.0) mg/dl AST 19 (13-39) U/L ALT 25 (7-52) U/L Alkaline Phosphatase 97 (34-104) U/L Total Protein 7.9 (6.0-8.3) gm/dl Albumin 4.3 (3.4-5.0) gm/dl Globulin 3.6 (2.5-4.0) gm/dl Albumin/Globulin Ratio 1.2 (0.9-2) TSH 4.563 H (0.300-4.500) uIu/ml Free T4 0.88 (0.61-1.60) ng/dl Urine Color Yellow Urine Appearance Clear (Clear) Urine pH 6.0 (4.5-7.5) Ur Specific Hudson 1.020 (1.000-1.030) Urine Protein Negative (Negative) Urine Glucose (UA) Negative (Negative) Urine Ketones Negative (Negative) Urine Blood Negative (Negative) Urine Nitrite Negative (Negative) Urine Bilirubin Negative (Negative) Urine Urobilinogen Negative (Negative) Ur Leukocyte Esterase Negative (Negative) Urine Comment Salicylates < 3.0 L (3.0-30) mg/dl Urine Opiates Screen Neg (Neg) Ur Methadone, Qual Neg (Neg) Urine Fentanyl Screen Neg (Neg) Acetaminophen < 3 L (10-30) ug/ml Urine Barbiturates Neg (Neg) Ur Phencyclidine (PCP) Neg (Neg) U Amphetamin/Meth Scrn Neg (Neg) MDMA (Ecstasy) Screen Neg (Neg) U Benzodiazepines Scrn Neg (Neg) Ur Cocaine Metabolite Pos H (Neg) U Marijuana (THC) Screen Neg (Neg) Ethyl Alcohol mg/dL < 10.0 (<10.0) mg/dl SARS-CoV-2, RNA, NAAT NEGATIVE (NEGATIVE) Discharge Plan Visit Data Chief Complaint: Mental Health Evaluation Stated Complaint: DEPRESSION ED Provider: Bob Rasmussen Discharge Problem: Suicidal thoughts Patient Disposition: Admitted As Inpatient Condition: Fair Forms Stand Alone Forms: Pending Sale To [facility], Suicide Prevention Resources Prescriptions Prescriptions: No Action lamotrigine 25 mg tablet 25 mg PO DAILY 30 Days Qty: 30 5RF atorvastatin 10 mg tablet 10 mg PO DAILY Qty: 30 2RF propranolol 60 mg capsule,extended release 24 hr 60 mg PO HS Qty: 30 3RF buspirone 5 mg tablet 5 mg PO BID Qty: 60 1RF losartan 50 mg Tablet 100 mg PO QAM Qty: 30 0RF aspirin [Children's Aspirin] 81 mg Tablet,Chewable 81 mg PO QAM Qty: 0 0RF Rx Instructions: buy over the counter cyanocobalamin (vitamin B-12) 500 mcg Tablet 1,000 mcg PO QAM Qty: 0 0RF Rx Instructions: buy over the counter Referrals Referrals: Cindy Garrido CRNP [Primary Care Provider] -
[2024-12-29 11:28] LABS: Hematocrit (blood only) 46.1 % (42.0-52.0); Hemoglobin 16.1 g/dl (14.0-18.0); Immature Granulocytes # (auto) 0.08 K/uL (0.01-0.20); Immature Granulocytes % (auto) 1.2 %; Mean Corpuscular Hemoglobin 32.0 pg (25.0-34.0); Mean Corpuscular Volume 91.7 fL (80.0-100.0); Platelet Count 312 K/uL (130-400); RDW Standard Deviation 40.5 fL (36.4-46.3); Red Blood Count 5.03 M/uL (4.70-6.10); White Blood Count 6.56 K/ul (4.8-10.8)
[2024-12-29 11:31] LABS: Appearance Urine Clear (Clear); Glucose Urine UA Negative (Negative)
[2024-12-29 11:44] LABS: Alanine Aminotransferase 25.0 U/L (7-52); Albumin Globulin Ratio 1.2 (0.9-2); Alkaline Phosphatase 97.0 U/L (34-104); Anion Gap 6.0 (3-11); Bilirubin,Total 1.0 mg/dl (0.2-1.0); Blood Urea Nitrogen 16.0 mg/dl (6-23); Calcium 9.7 mg/dl (8.6-10.3); Carbon Dioxide 31.0 mmol/L (21-32); Chloride 100.0 mmol/L (98-107); Creatinine Clr Calc Pharmacy 99.0 ml/min; Globulin 3.6 gm/dl (2.5-4.0); Glucose 99.0 mg/dl (70-99(Fasting)); Potassium 3.7 mmol/L (3.5-5.1); Sodium 137.0 mmol/L (136-145); Total Protein 7.9 gm/dl (6.0-8.3)
[2024-12-29 11:46] LABS: Acetaminophen < 3 ug/ml (10-30); Salicylate < 3.0 mg/dl (3.0-30)
[2024-12-29 11:58] LABS: Thyroid Stimulating Hormone 4.563 uIu/ml (0.300-4.500)
[2024-12-29 12:07] LABS: Amphetamines+Metham, Urine Neg (Neg); MDMA (Ecstacy), Urine Neg (Neg); Marijuana, Urine Neg (Neg)
[2024-12-29] MEDS ORDERED: BISMUTH SUBSALICYLATE 262 MG CHEW PO PRN (17:17)
[2024-12-29] MEDS ORDERED: ALUMINUM/MAGNESIUM SUSP 30 ML UDC PO PRN (17:17)
[2024-12-29] MEDS ORDERED: SODIUM CHLORIDE 0.65% NA SOLN 45 ML (OCEAN) PRN (17:17)
[2024-12-29] MEDS ORDERED: MAGNESIUM HYDROXIDE SUSP 30 ML UDC PO PRN (17:17)
[2024-12-29] MEDS: CYANOCOBALAMIN (B-12) 500 MCG TABLET PO SCH (18:17)
[2024-12-29] MEDS: LOSARTAN POTASSIUM 50 MG TAB PO SCH (18:18)
[2024-12-29] MEDS: ATORVASTATIN 10 MG TAB PO SCH (18:18)
[2024-12-29] MEDS: lamoTRIgine 25 MG TAB PO SCH (18:18)
[2024-12-29] MEDS: ASPIRIN 81 MG CHEW PO SCH (18:19)
[2024-12-29] MEDS: busPIRone 5 MG TAB PO SCH (21:27)
[2024-12-29] MEDS: PROPRANOLOL HCL 60 MG LA CAP PO SCH (21:27)
--- NOTE | 2024-12-30 09:22 | History & Physical ---
Date of Service December 30, 2024 Impression / Recommendations Impression MARYLIN SCOTT is a 54-year-old man who currently lives in [place] with his , has a history of depression, bipolar disorder, cocaine use, anxiety and was admitted on 12/29/24 17:15 on a 201 voluntary commitment for SI with plan to crash his car. Diagnostically consistent with bipolar affective disorder with current depressive episode, substance use disorder (cocaine and alcohol), anxiety-likely generalized anxiety disorder, paranoia (likely substance-induced versus secondary to increased depression and anxiety) and trauma and stressor-related disorder versus PTSD in the context of increased work stress, recent substance use escalation and social isolation. His undertreated FELICITA may also be contributing to depression and insomnia symptoms. He demonstrates insight and motivation for treatment. Discussed medication treatment options in detail. Discussed risks, benefits and alternatives. Patient would like to start and consented to increasing lamictal dose for mood stabilization, starting abilify for paranoia and mood stabilization, increasing buspar for anxiety in coming days, starting sertraline for depression/anxiety/trauma symptoms given past beneficial effects, and continuing trazodone for sleep. Reviewed side effects including but not limited to: GI, HICKMAN, sexual side effects with sertraline, sedation/weight gain with trazodone, dizziness with buspar, potential for fatatl rash and need for adherence with lamictal, movement (TD, NMS), cardiac (QTc prolongation), and metabolic (stroke, insulin resistance) and necessity for fasting lipid and glucose labwork and AIMS done with score of 0 with abilify. The patient's use history and negative consequences suggests substance use disorder. Motivational interviewing was done as a brief intervention. Intervention was greater than 5 minutes in length and included assessing readiness to quit, advice on how to reduce or abstain and to set a specific goal for this hospitalization. laceworker will also assist in anticipating barriers to reducing or abstaining from substance use and in problem-solving for solutions to those problems while arranging for referral to appropriate treatment. The patient is in contemplative stage with regards to transtheoretical model of change. Recommended decreasing consumption due to disinhibiting effects and potential for worsening psychiatric symptoms. Overall I spent a total of 85 minutes for this admission including review of chart records, review of labwork, direct evaluation of the patient, counseling the patient, ordering medication, risk assessment, discussion with the psychiatric liason RN and documentation in the electronic health record. (1) Suicidal thoughts: (2) Bipolar I disorder with depression, severe: (3) Paranoia: (4) PHUONG (generalized anxiety disorder): (5) Trauma and stressor-related disorder: (6) ADHD: (7) Insomnia: (8) FELICITA (obstructive sleep apnea): (9) Cocaine use: Plan 12/30/2024: The patient was admitted to the [facility] ([facility]) on q15 min checks (behavioral with suicide precautions) for safety. The patient will participate in group, recreational, and milieu therapies and will be offered additional individual and family sessions as clinically appropriate. -Medications: * Increase lamictal to 50mg HS (will give 25mg HS tonight as got AM dose of 25mg already) * Continue Buspar 5mg BID for now, consider increase in coming days * Start sertraline 50mg HS * Continue trazodone 50mg HS * Start abilify 2.5mg daily tomorrow -SW to explore outpatient options including residential vs IOP as well as outpatient psychiatry -Symptom questionnaires provided -Fasting lipid panel, HbA1c, Vit D tomorrow AM Inventory Assets Strengths: supportive relationships, willing to get treatment Needs: safety and stabilization, medication adjustment, additional coping skills, increased outpatient services Suicide Risk Level Suicide Risk Level: High-Moderate (q15 min suicide checks) (SI with depression but feels safe in the hospital and feels able to ask for support) Suicide Risk Level Comments: Risk Factors Assessment Male: Yes : Yes Do You Have Access To A Gun?: No Health Problems: Yes Mental Health Diagnoses: Yes Substance Use Disorders: Yes Previous Attempt: Yes Family History of Suicide: No Previous Psychiatric Hospitalization: Yes Hopelessness: Yes Protective Factors Assessment : Yes Employed: Yes ([employer]) Stable Relationships: Yes Supportive Family: Yes Good Rapport with Provider: Yes Psychiatric History Identifying Data MARYLIN SCOTT is a 54-year-old man who currently lives in [place] with his , has a history of depression, bipolar disorder, and was admitted on 12/29/24 17:15 on a 201 voluntary commitment for SI with plan to crash his car. Chief Complaint "There's something way more wrong with me then I can fix". History of Present Illness He presents for psychiatric admission for worsening depression and SI with plan of crashing his car in the context of multiple psychosocial stressors including intense work schedule, social isolation due to his 's demanding travel schedule and recent substance use. Woodrow presents for psychiatric admission due to worsening paranoia, anxiety and depression over the past several months in the context of increased work stress and his 's frequent travel. He reports increasing paranoid thoughts which are his most bothersome current symptom. Since he started using cocaine again he's been more suspicious and worried about what everyone is thinking and doing and saying. He sometimes thinks others are taking about him. He notes this has worsened since his began traveling more frequently for work worrying about what she might be doing since she's often traveling with peers. He has also been constantly worrying about what others are thinking or saying about him even in benign interactions at work. He also describes significant anxiety and racing thoughts. He reports his mood has been very depressed lately. While driving home from visiting family in [place] he felt like if he did not come to the hospital he would have crashed his car. He has been having frequent thoughts over recent weeks that it would be "easier" if he did not wake up in the morning and has been praying to God at night that he will in his sleep. He notes increased isolation and difficulty coping since his began traveling more for work. He also describes ongoing grief and trauma symptoms related to witnessing his best friend's many years ago including flashbacks triggered by things on TV. His sleep has always varied a lot. He has FELICITA and started a CPAP but then his machine was recalled and then it's been delay after delay and he got claustrophobic. He slept well last night after taking a dose of trazodone. 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 He has been using cocaine 10-15 times per month and spending around $200 per day on it. He reports using cocaine and alcohol together typically consuming 6-7 beers about 3 times per week when using cocaine. He states the substance use helps numb both physical pain from neuropathy as well as emotional pain and allowing him to "not care" temporarily. However he recognizes this has been destructive financially and emotionally. 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 He reports difficulty maintaining work life balance and prioritizing his health o geronimo work obligations. He is currently psychiatric medications: lamictal 25mg daily (started about 5-6 weeks ago), and buspar 5mg BID (started a week ago). Psychiatric ROS notable for no current nor history of symptoms of OCD, self-harm nor eating disorder. History of javier, last episode was a few years ago. History of possible ADHD with restlessness, difficulty sitting still, inattention, poor concentration starting in childhood. Past Psychiatric History Current Psychiatric Diagnosis: Depression/Anxiety, history of possible ADHD Outpatient Services: none Previous Psych Admissions: [address] [place] [address] Do You Have Access To A Gun?: No History of Previous Suicide Attempt: Yes (1999) Describe Attempts in the Past: interrupted attempt after almost jumping from a bridge Past Medication Trials: -trazodone 200mg in the past-it was stopped because it seemed to stop working -Zoloft-seemed helpful in the past -Celexa-doesn't recall -Depakote-hx -no history of antipsychotics Allergies Allergy/AdvReac Type Severity Reaction Status Date / Time No Known Allergies Allergy Unverified 12/21/24 10:51 Home Medications Medication Instructions Recorded Confirmed Type atorvastatin 10 mg tablet 10 mg PO DAILY #30 tabs 11/23/24 12/29/24 Rx lamotrigine 25 mg tablet 25 mg PO DAILY 30 days #30 tabs 11/23/24 12/29/24 Rx aspirin 81 mg chewable tablet 81 mg PO QAM #0 tabs 12/20/24 12/29/24 Rx (Children's Aspirin) cyanocobalamin (vitamin B-12) 500 1,000 mcg (2 x 500 mcg) PO QAM #0 12/20/24 12/29/24 Rx mcg tablet tabs losartan 50 mg tablet 100 mg (2 x 50 mg) PO QAM #30 tabs 12/20/24 12/29/24 Rx buspirone 5 mg tablet 5 mg PO BID #60 tabs 12/21/24 12/29/24 Rx propranolol 60 mg capsule,24 60 mg PO HS #30 caps 12/21/24 12/29/24 Rx hr,extended release Family History Family History of: Doesn't Know Alcohol History Hx of Alcohol Use Over the Past 12 Months: Yes (6-7 beers 3x per week) AUDIT Total Score: 7 Uses alcohol with cocaine Smoking Use Smoking Status: Never smoker Substance History Hx of Prescription Med Misuse Over the Past 12 Months: No Hx of Over the Counter Med Misuse Over the Past 12 Months: No Hx of Inhalent Misuse Over the Past 12 Months: No Hx of Organic Substance Use Over the Past 12 Months: Yes (Cocaine) Hx of Illegal Substances/Street Drug Use Over Past 12 Months: No Problems as a Result of Past Substance Use: None Identified history of cocaine use with past residential substance use treatment, recent relpase of use every other day about 10-15 times in the last month via snorting Personal History Living Arrangements: Home Highest Grade Completed: Some College 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 And again Early [id number]? Father , 06/20/2021 Hypertension Myocardial infarction Grandfather (Maternal) Myocardial infarction Grandfather (Paternal) Myocardial infarction Grandmother (Maternal) Myocardial infarction Grandmother (Paternal) Myocardial infarction Other Sudden Denies family history of Breast cancer Colorectal cancer Social History Smoking Status: Never smoker Hx Alcohol Use: Yes Alcohol type: beer Alcohol Intake Frequency: 2-3 x/Week Hx Substance Use: No Preferred Language: Lithuanian Visual Impairment: Partially Limited Hearing Ability: Normal Mushroom Growing Supervisor Required: No Beliefs That Will Affect Care: None marital status: Single Current Living Situation: Spouse Current Living Situation Comment: Girlfriend and step daughter current occupational status: employed 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 How many Children do You have: 4 Feels Safe at Home: Yes Diet: regular caffeine: Yes (1 cup coffee per day ) during the past year weight has: increased > 10 lbs Dental Care, Regularly: Yes Physical Activity Frequency: Does not Exercise Seatbelt Use: always Sunscreen Use: Yes Gender Identity: Male Assistive Devices: Glasses Review of Systems Review of Systems: All systems reviewed & are unremarkable except as noted in HPI & below Physical Exam Psychiatric: Orientation: alert and oriented x 3 Apperance: appropriately dressed and appropriately groomed Eye Contact: good eye contact Motor Behavior: no abnormal motor movements Speech: normal rate/rhythm/volume of speech Affect: + depressed affect and + anxious affect Mood: + depressed mood and + anxious mood Thought Process: + circumstantial thought process Thought Content: + paranoid, + hopelessness, + worthlessness and + loneliness Suicidal Thoughts: denies suicidal intent; + reports suicidal thoughts and + reports suicidal plan (none for hospital) Homicidal Thoughts: denies homicidal thoughts Hallucinations: no auditory hallucinations and no visual hallucinations Cognition: recent memory grossly intact, remote memory grossly intact, attention grossly intact and language grossly intact Estimated Intelligence: consistent with education level Insight: + fair insight Judgment: + fair judgement Vital Signs (Past 24 Hours): Last Vital Signs Temp 36.6 C 12/30/24 06:22 Pulse 59 L 12/30/24 06:23 Resp 16 12/30/24 06:22 BP 134/90 12/30/24 06:23 Pulse Ox 95 12/29/24 17:57 O2 Del Method Room Air 12/30/24 06:22 Exam Statement: A physical exam was performed in the ED by Dr. Rasmussen for the purposes of medical clearance. I accept that physical as correct and adequate for the purposes of the inpatient physical exam. Results & Data ([facility]) Laboratory Results Laboratory Results - last 24 hr 12/29/24 12/29/24 12/29/24 10:48 11:10 13:26 WBC 6.56 RBC 5.03 Hgb 16.1 Hct 46.1 MCV 91.7 MCH 32.0 MCHC 34.9 RDW Std Deviation 40.5 RDW Coeff of [place]bin 12.2 Plt Count 312 MPV 9.3 L Immature Gran % (Auto) 1.2 Neut % (Auto) 66.0 Lymph % (Auto) 14.8 Williams % (Auto) 10.5 Eos % (Auto) 6.9 Baso % (Auto) 0.6 Neut # (Auto) 4.33 Lymph # (Auto) 0.97 L Williams # (Auto) 0.69 H Eos # (Auto) 0.45 Baso # (Auto) 0.04 Immature Gran # (Auto) 0.08 Sodium 137 Potassium 3.7 Chloride 100 Carbon Dioxide 31 Anion Gap 6 BUN 16 Creatinine 1.13 Est Cr Clr Drug Dosing 99.0 eGFR 77.24 BUN/Creatinine Ratio 14.2 Glucose 99 Calcium 9.7 Total Bilirubin 1.0 AST 19 ALT 25 Alkaline Phosphatase 97 Total Protein 7.9 Albumin 4.3 Globulin 3.6 Albumin/Globulin Ratio 1.2 TSH 4.563 H Free T4 0.88 Urine Color Yellow Urine Appearance Clear Urine pH 6.0 Ur Specific [place] 1.020 Urine Protein Negative Urine Glucose (UA) Negative Urine Ketones Negative Urine Blood Negative Urine Nitrite Negative Urine Bilirubin Negative Urine Urobilinogen Negative Ur Leukocyte Esterase Negative Urine Comment Salicylates < 3.0 L Urine Opiates Screen Neg Ur Methadone, Qual Neg Urine Fentanyl Screen Neg Acetaminophen < 3 L Urine Barbiturates Neg Ur Phencyclidine (PCP) Neg U Amphetamin/Meth Scrn Neg MDMA (Ecstasy) Screen Neg U Benzodiazepines Scrn Neg U Cocaine Confirm GC/MS Pending Ur Cocaine Metabolite Pos H U Marijuana (THC) Screen Neg Drug Screen Comment Pending Ethyl Alcohol mg/dL < 10.0 SARS-CoV-2, RNA, NAAT NEGATIVE Current Inpatient Medications Current Inpatient Medications: Current Inpatient Medications Acetaminophen (Acetaminophen 325 Mg Tab) 650 mg PO Q4H PRN PRN Reason: Headache or Minor Fever Stop: 01/28/25 17:16 Al Hydrox/Mg Hydrox/Simethicone (Aluminum/Magnesium Susp 30 Ml Udc) 30 ml PO Q4H PRN PRN Reason: GI Upset Stop: 01/28/25 17:16 Aspirin (Aspirin 81 Mg Chew) 81 mg PO DAILY ANGELIC Stop: 01/28/25 17:59 Last Admin: 12/29/24 18:19 Dose: 81 mg Atorvastatin Calcium (Atorvastatin 10 Mg Tab) 10 mg PO QAM ANGELIC Stop: 01/28/25 17:44 Last Admin: 12/29/24 18:18 Dose: 10 mg Bismuth Subsalicylate (Bismuth Subsalicylate 262 Mg Chew) 2 tab PO Q30M PRN PRN Reason: Loose Stool/Diarrhea Stop: 01/28/25 17:16 Buspirone HCl (Buspirone 5 Mg Tab) 5 mg PO BID ANGELIC Stop: 01/28/25 20:59 Last Admin: 12/29/24 21:27 Dose: 5 mg Cyanocobalamin (Cyanocobalamin (B-12) 500 Mcg Tablet) 1,000 mcg PO QAM ANGELIC Stop: 01/28/25 17:59 Last Admin: 12/29/24 18:17 Dose: 1,000 mcg Hydroxyzine HCl (Hydroxyzine Hcl 25 Mg Tab) 50 mg PO HSZ PRN PRN Reason: Insomnia Stop: 01/28/25 17:16 Hydroxyzine HCl (Hydroxyzine Hcl 25 Mg Tab) 25 mg PO Q4H PRN PRN Reason: Anxiety Stop: 01/28/25 17:16 Lamotrigine (Lamotrigine 25 Mg Tab) 25 mg PO QAM [facility]; Protocol Stop: 01/28/25 17:44 Last Admin: 12/29/24 18:18 Dose: 25 mg Losartan Potassium (Losartan Potassium 50 Mg Tab) 100 mg PO QAM [facility] Stop: 01/28/25 17:44 Last Admin: 12/29/24 18:18 Dose: 100 mg Magnesium Hydroxide (Magnesium Hydroxide Susp 30 Ml Udc) 30 ml PO DAILY PRN PRN Reason: Constipation Stop: 01/28/25 17:16 Propranolol HCl (Propranolol Hcl 60 Mg [place]) 60 mg PO HS ANGELIC Stop: 01/28/25 21:59 Last Admin: 12/29/24 21:27 Dose: 60 mg Sodium Chloride (Sodium Chloride 0.65% Na Soln 45 Ml ([place])) 1 - 2 sprays NA PRN PRN PRN Reason: Nasal Dryness/Congestion Stop: 01/28/25 17:16 Trazodone HCl (Trazodone Hcl 50 Mg Tab) 50 mg PO HS ANGELIC Stop: 01/28/25 21:59 Last Admin: 12/29/24 21:28 Dose: 50 mg
[2024-12-30] MEDS: busPIRone 5 MG TAB PO SCH (21:14)
[2024-12-30] MEDS: lamoTRIgine 25 MG TAB PO SCH (21:14)
[2024-12-30] MEDS: PROPRANOLOL HCL 60 MG LA CAP PO SCH (21:14)
[2024-12-31] MEDS: ACETAMINOPHEN 325 MG TAB PO PRN (06:25)
[2024-12-31 08:08] LABS: Cholesterol 185.0 mg/dl (0-200); HDL Cholesterol 49.0 mg/dl; Triglycerides 184.0 mg/dl (0-150)
[2024-12-31] MEDS: ARIPiprazole 5 MG TAB PO SCH (08:41)
[2024-12-31] MEDS: ASPIRIN 81 MG CHEW PO SCH (08:42)
[2024-12-31] MEDS: CYANOCOBALAMIN (B-12) 500 MCG TABLET PO SCH (08:43)
[2024-12-31] MEDS: LOSARTAN POTASSIUM 50 MG TAB PO SCH (08:43)
[2024-12-31] MEDS: SERTRALINE HCL 50 MG TABLET PO SCH (08:43)
[2024-12-31 09:05] LABS: Hemoglobin A1C 5.6 % (4.5-5.6)
--- NOTE | 2024-12-31 09:22 | Psychiatric Progress Note ---
Date of Service December 31, 2024 Impression / Recommendations Impression MARYLIN SCOTT is a 54-year-old man who currently lives in [place] with his , has a history of depression, bipolar disorder (though questioning at this point given negative mood disorder screen), cocaine use, anxiety, trauma and was admitted on 12/29/24 17:15 on a 201 voluntary commitment for SI with plan to crash his car. Diagnostically consistent with unspecified depressive disorder with differential including bipolar affective disorder type II depressive episode vs major depressive disorder, substance use disorder (cocaine and alcohol), anxiety- likely generalized anxiety disorder and possible OCD component, paranoia (likely substance-induced versus secondary to increased depression and anxiety) and trauma and stressor-related disorder versus PTSD in the context of increased work stress, recent substance use escalation and social isolation. His undertreated FELICITA may also be contributing to depression and insomnia symptoms. He demonstrates insight and motivation for treatment. A: Ongoing depression, anxiety and subjective paranoia. No evidence for acute psychosis but due to his ongoing report of increased paranoia will titrate abilify which he consents to. Labwork reviewed and notable for stable HbA1c, elevated triglycerides, stable cholesterol, normal Vit D. ADHD self-report consistent with diagnosis, positive jessica BPD screen, PHUONG-7 score of 21/21, PHQ-9 score of 23 with 3 for Q9, high score on Y-BOCS with various obsessions and a lot of checking compulsions, high score on international trauma questionnaire consistent with likely OCD, high LAURA score of 8, mood disorder questionnaire was negative. Exploring residential treatment options. Overall, I spent a total of 52 minutes on this case including meeting with the patient, reviewing the chart, nursing report, multidisciplinary team meeting, orders, and documentation. (1) Suicidal thoughts: (2) Depression with suicidal ideation: (3) Post traumatic stress disorder (PTSD): (4) Paranoia: (5) PHUONG (generalized anxiety disorder): (6) Trauma and stressor-related disorder: (7) Obsessive compulsive disorder: (8) ADHD: (9) Insomnia: (10) Cocaine use: (11) Peripheral neuropathy: (12) History of adverse childhood experiences: (13) FELICITA (obstructive sleep apnea): Plan 12/31/2024: -Increase abilify to 5mg daily tomorrow 12/30/2024: The patient was admitted to the [facility] ([facility]) on q15 min checks (behavioral with suicide precautions) for safety. The patient will participate in group, recreational, and milieu therapies and will be offered additional individual and family sessions as clinically appropriate. -Medications: * Increase lamictal to 50mg HS (will give 25mg HS tonight as got AM dose of 25mg already) * Continue Buspar 5mg BID for now, consider increase in coming days * Start sertraline 50mg HS * Continue trazodone 50mg HS * Start abilify 2.5mg daily tomorrow -SW to explore outpatient options including residential vs IOP as well as outpatient psychiatry -Symptom questionnaires provided -Fasting lipid panel, HbA1c, Vit D tomorrow AM Inventory Assets Strengths: supportive relationships, willing to get treatment Needs: safety and stabilization, medication adjustment, additional coping skills, increased outpatient services Suicide Risk Level Suicide Risk Level: High-Moderate (q15 min suicide checks) (SI with depression but feels safe in the hospital and feels able to ask for support) Suicide Risk Level Comments: Risk Factors Assessment Male: Yes : Yes Do You Have Access To A Gun?: No Health Problems: Yes Mental Health Diagnoses: Yes Substance Use Disorders: Yes Previous Attempt: Yes Family History of Suicide: No Previous Psychiatric Hospitalization: Yes Hopelessness: Yes Protective Factors Assessment : Yes 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 Chief Complaint "Bumming a bit". Review of Systems Sleep Information Total Hours of Sleep: 8 Meal Information Percent Meal Consumed - Breakfast: 100 Percent Meal Consumed - Lunch: 100 Percent Meal Consumed - Dinner: 100 Subjective Subjective Patient was seen & assessed and interval progress reviewed with nursing and social work. Attending all the groups. Slept well. Neuropathy symptoms in his feet, were feeling cold last evening, wearing his sneakers seems to help. Today reports his mood is ok, down after talking to his girfriend, felt like a burden. Tolerating the medication changes so far, expresses some ongoing paranoia, he'd like to try higher dose of abilify. No medication side effects except sense of some hot flashes but he's unsure if this was due to temperature thermostat changes on the unit. He's thinking about possible residential treatment. Reviewed his labwork and symptoms questionnaires together. Physical Exam Psychiatric Orientation: alert and oriented x 3 Apperance: appropriately dressed and appropriately groomed Eye Contact: good eye contact Motor Behavior: no abnormal motor movements Speech: normal rate/rhythm/volume of speech Affect: + depressed affect and + anxious affect Mood: + depressed mood and + anxious mood Thought Process: + circumstantial thought process Thought Content: + paranoid, + hopelessness, + worthlessness and + loneliness Suicidal Thoughts: denies suicidal intent; + reports suicidal thoughts and + reports suicidal plan (none for hospital) Homicidal Thoughts: denies homicidal thoughts Hallucinations: no auditory hallucinations and no visual hallucinations Cognition: recent memory grossly intact, remote memory grossly intact, attention grossly intact and language grossly intact Estimated Intelligence: consistent with education level Insight: + fair insight Judgment: + fair judgement Vital Signs (Past 24 Hours) Last Vital Signs Temp 35.9 C L 12/31/24 06:36 Pulse 59 L 12/31/24 06:36 Resp 18 12/31/24 06:36 BP 139/99 12/31/24 06:36 Pulse Ox 98 12/31/24 06:36 O2 Del Method Room Air 12/31/24 06:36 Results & Data ([facility]) Laboratory Results Laboratory Results - last 24 hr 12/31/24 07:36 Estimat Average Glucose 114 Hemoglobin A1c 5.6 Triglycerides 184 H Cholesterol 185 LDL Cholesterol, Calc 99 VLDL Cholesterol, Calc 37 H HDL Cholesterol 49 Cholesterol/HDL Ratio 3.8 25-OH Vitamin D Total 55.1 Current Inpatient Medications Current Inpatient Medications: Current Inpatient Medications Acetaminophen (Acetaminophen 325 Mg Tab) 650 mg PO Q4H PRN PRN Reason: Headache or Minor Fever Stop: 01/28/25 17:16 Last Admin: 12/31/24 06:25 Dose: 650 mg Al Hydrox/Mg Hydrox/Simethicone (Aluminum/Magnesium Susp 30 Ml Udc) 30 ml PO Q4H PRN PRN Reason: GI Upset Stop: 01/28/25 17:16 Aripiprazole (Aripiprazole 5 Mg Tab) [facility]: 01/30/25 08:59 Last Admin: 12/31/24 08:41 Dose: 2.5 mg Aspirin (Aspirin 81 Mg Chew) 81 mg PO QAM [facility] Stop: 01/30/25 08:59 Last Admin: 12/31/24 08:42 Dose: 81 mg Atorvastatin Calcium (Atorvastatin 10 Mg Tab) 10 mg PO [facility] Stop: 01/30/25 21:59 Bismuth Subsalicylate (Bismuth Subsalicylate 262 Mg Chew) 2 tab PO Q30M PRN PRN Reason: Loose Stool/Diarrhea Stop: 01/28/25 17:16 Buspirone HCl (Buspirone 5 Mg Tab) 5 mg PO BID [facility] Stop: 01/29/25 20:59 Last Admin: 12/31/24 08:41 Dose: 5 mg Cyanocobalamin (Cyanocobalamin (B-12) 500 Mcg Tablet) 1,000 mcg [facility] Stop: 01/30/25 08:59 Last Admin: 12/31/24 08:43 Dose: 1,000 mcg Hydroxyzine HCl (Hydroxyzine Hcl 25 Mg Tab) 50 mg PO HSZ PRN PRN Reason: Insomnia Stop: 01/28/25 17:16 Hydroxyzine HCl (Hydroxyzine Hcl 25 Mg Tab) 25 mg PO Q4H PRN PRN Reason: Anxiety Stop: 01/28/25 17:16 Lamotrigine (Lamotrigine 25 Mg Tab) 50 mg PO [facility]; Protocol Stop: 01/30/25 21:59 Losartan Potassium (Losartan Potassium 50 Mg Tab) 100 mg PO [facility] Stop: 01/30/25 08:59 Last Admin: 12/31/24 08:43 Dose: 100 mg Magnesium Hydroxide (Magnesium Hydroxide Susp 30 Ml Udc) 30 ml PO DAILY PRN PRN Reason: Constipation Stop: 01/28/25 17:16 Propranolol HCl (Propranolol Hcl 60 Mg [place]) 60 mg PO [facility] Stop: 01/29/25 21:59 Last Admin: 12/30/24 21:14 Dose: 60 mg Sertraline HCl (Sertraline Hcl 50 Mg Tablet) [facility] Stop: 01/30/25 08:59 Last Admin: 12/31/24 08:43 Dose: 50 mg Sodium Chloride (Sodium Chloride 0.65% Na Soln 45 Ml ([place])) 1 - 2 sprays NA PRN PRN PRN Reason: Nasal Dryness/Congestion Stop: 01/28/25 17:16 Trazodone HCl (Trazodone Hcl 50 Mg Tab) 50 mg PO HS [facility] Stop: 01/28/25 21:59 Last Admin: 12/30/24 21:15 Dose: 50 mg Mental Health & Subst Abuse Tx Therapist Name of Therapist: None 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
[2024-12-31] MEDS: lamoTRIgine 25 MG TAB PO SCH (21:09)
[2024-12-31] MEDS: ATORVASTATIN 10 MG TAB PO SCH (21:09)
[2025-01-01 05:45] VITALS: O2SAT 97
--- NOTE | 2025-01-01 09:11 | Psychiatric Progress Note ---
Date of Service January 01, 2025 Impression / Recommendations Impression MARYLIN SCOTT is a 54-year-old man who currently lives in [place] with his , has a history of depression, bipolar disorder (though questioning at this point given negative mood disorder screen), cocaine use, anxiety, trauma and was admitted on 12/29/24 17:15 on a 201 voluntary commitment for SI with plan to crash his car. Diagnostically consistent with unspecified depressive disorder with differential including bipolar affective disorder type II depressive episode vs major depressive disorder, substance use disorder (cocaine and alcohol), anxiety- likely generalized anxiety disorder and possible OCD component, paranoia (likely substance-induced versus secondary to increased depression and anxiety) and trauma and stressor-related disorder versus PTSD in the context of increased work stress, recent substance use escalation and social isolation. His undertreated FELICITA may also be contributing to depression and insomnia symptoms. He demonstrates insight and motivation for treatment. A: Mood improving a little as he feels confident and proud of himself for not letting obligations of work sway him from seeking residential mental health treatment as he feels this will be what he needs to really work on his mental health and avoid future substance use. Tolerating medications without side effects. Referral placed to [facility], awaiting decision on admission and when a bed would be available. Overall, I spent a total of 36 minutes on this case including meeting with the patient, reviewing the chart, nursing report, multidisciplinary team meeting, orders, and documentation. (1) Depression: (2) PHUONG (generalized anxiety disorder): (3) Suicidal thoughts: (4) Post traumatic stress disorder (PTSD): (5) Paranoia: (6) Trauma and stressor-related disorder: (7) Obsessive compulsive disorder: (8) ADHD: (9) Insomnia: (10) Cocaine use: (11) Peripheral neuropathy: (12) History of adverse childhood experiences: (13) FELICITA (obstructive sleep apnea): Plan 01/01/2025: -Continue current medications and tx plan. 12/31/2024: -Increase abilify to 5mg daily tomorrow 12/30/2024: The patient was admitted to the [facility] ([facility]) on q15 min checks (behavioral with suicide precautions) for safety. The patient will participate in group, recreational, and milieu therapies and will be offered additional individual and family sessions as clinically appropriate. -Medications: * Increase lamictal to 50mg HS (will give 25mg HS tonight as got AM dose of 25mg already) * Continue Buspar 5mg BID for now, consider increase in coming days * Start sertraline 50mg HS * Continue trazodone 50mg HS * Start abilify 2.5mg daily tomorrow -SW to explore outpatient options including residential vs IOP as well as outpat ient psychiatry -Symptom questionnaires provided -Fasting lipid panel, HbA1c, Vit D tomorrow AM Inventory Assets Strengths: supportive relationships, willing to get treatment Needs: safety and stabilization, medication adjustment, additional coping skills, increased outpatient services Suicide Risk Level Suicide Risk Level: Moderate (q15 min suicide checks) (SI with depression prior to admission but mood improving, denies SI and feels safe in the hospital and feels able to ask for support) Suicide Risk Level Comments: Risk Factors Assessment Male: Yes : Yes Do You Have Access To A Gun?: No Health Problems: Yes Mental Health Diagnoses: Yes Substance Use Disorders: Yes Previous Attempt: Yes Family History of Suicide: No Previous Psychiatric Hospitalization: Yes Hopelessness: Yes Protective Factors Assessment : Yes 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 Chief Complaint "Now that I made the decision I feel better". Review of Systems Sleep Information Total Hours of Sleep: 8 Meal Information Percent Meal Consumed - Breakfast: 100 Percent Meal Consumed - Lunch: 100 Percent Meal Consumed - Dinner: 100 Subjective Subjective Patient was seen & assessed and interval progress reviewed with treatment team. His girlfriend visited last evening. He decided he wants to pursue residential treatment and this has given him a lot of peace of mind. Reports his mood is improving, he's hopeful about getting mental health treatment. Having a headache today, but lessening. Discussed possible this could be from starting sertraline and if so should resolve within two weeks. Tolerating the other medications well without side effects. Called and spoke with [facility], is very hopeful about starting there program. Denies SI as he feels safe in the hospital and feels he would be safe at the residential treatment program. Physical Exam Psychiatric Orientation: alert and oriented x 3 Apperance: appropriately dressed and appropriately groomed Eye Contact: good eye contact Motor Behavior: no abnormal motor movements Speech: normal rate/rhythm/volume of speech Affect: + anxious affect Mood: + depressed mood and + anxious mood Thought Process: goal directed thought process Thought Content: reality based without delusions Suicidal Thoughts: denies suicidal plan and denies suicidal intent; + reports suicidal thoughts (intermittent, none today as feels safe here) Homicidal Thoughts: denies homicidal thoughts Hallucinations: no auditory hallucinations and no visual hallucinations Cognition: recent memory grossly intact, remote memory grossly intact, attention grossly intact and language grossly intact Estimated Intelligence: consistent with education level Insight: good insight Judgment: + fair judgement Vital Signs (Past 24 Hours) Last Vital Signs Temp 36.3 C L 01/01/25 05:44 Pulse 50 L 01/01/25 05:44 Resp 17 01/01/25 05:44 BP 117/79 01/01/25 05:45 Pulse Ox 97 01/01/25 05:44 O2 Del Method Room Air 01/01/25 05:44 Results & Data ([facility]) Current Inpatient Medications Current Inpatient Medications: Current Inpatient Medications Acetaminophen (Acetaminophen 325 Mg Tab) 650 mg PO Q4H PRN PRN Reason: Headache or Minor Fever Stop: 01/28/25 17:16 Last Admin: 01/01/25 08:02 Dose: 650 mg Al Hydrox/Mg Hydrox/Simethicone (Aluminum/Magnesium Susp 30 Ml Udc) 30 ml PO Q4H PRN PRN Reason: GI Upset Stop: 01/28/25 17:16 Aripiprazole (Aripiprazole 5 Mg Tab) 2.5 mg PO QAM [facility] Stop: 01/30/25 08:59 Last Admin: 01/01/25 08:01 Dose: 2.5 mg Aspirin (Aspirin 81 Mg Chew) 81 mg PO QAM [facility] Stop: 01/30/25 08:59 Last Admin: 01/01/25 08:01 Dose: 81 mg Atorvastatin Calcium (Atorvastatin 10 Mg Tab) 10 mg PO HS [facility] Stop: 01/30/25 21:59 Last Admin: 12/31/24 21:09 Dose: 10 mg Bismuth Subsalicylate (Bismuth Subsalicylate 262 Mg Chew) 2 tab PO Q30M PRN PRN Reason: Loose Stool/Diarrhea Stop: 01/28/25 17:16 Buspirone HCl (Buspirone 5 Mg Tab) 5 mg PO BID [facility] Stop: 01/29/25 20:59 Last Admin: 01/01/25 08:01 Dose: 5 mg Cyanocobalamin (Cyanocobalamin (B-12) 500 Mcg Tablet) 1,000 mcg PO QAM [facility] Stop: 01/30/25 08:59 Last Admin: 01/01/25 08:02 Dose: 1,000 mcg Hydroxyzine HCl (Hydroxyzine Hcl 25 Mg Tab) 50 mg PO HSZ PRN PRN Reason: Insomnia Stop: 01/28/25 17:16 Hydroxyzine HCl (Hydroxyzine Hcl 25 Mg Tab) 25 mg PO Q4H PRN PRN Reason: Anxiety Stop: 01/28/25 17:16 Lamotrigine (Lamotrigine 25 Mg Tab) 50 mg PO [facility]; Protocol Stop: 01/30/25 21:59 Last Admin: 12/31/24 21:09 Dose: 50 mg Losartan Potassium (Losartan Potassium 50 Mg Tab) [facility] [place] Stop: 01/30/25 08:59 Last Admin: 01/01/25 08:02 Dose: 100 mg Magnesium Hydroxide (Magnesium Hydroxide Susp 30 Ml Udc) 30 ml PO DAILY PRN PRN Reason: Constipation Stop: 01/28/25 17:16 Propranolol HCl (Propranolol Hcl 60 Mg [place]) 60 mg PO [facility] Stop: 01/29/25 21:59 Last Admin: 12/31/24 21:08 Dose: 60 mg Sertraline HCl (Sertraline Hcl 50 Mg Tablet) 50 mg PO QAM [facility] Stop: 01/30/25 08:59 Last Admin: 01/01/25 08:02 Dose: 50 mg Sodium Chloride (Sodium Chloride 0.65% Na Soln 45 Ml ([place])) 1 - 2 sprays NA PRN PRN PRN Reason: Nasal Dryness/Congestion Stop: 01/28/25 17:16 Trazodone HCl (Trazodone Hcl 50 Mg Tab) 50 mg PO [facility] Stop: 01/28/25 21:59 Last Admin: 12/31/24 21:10 Dose: 50 mg Mental Health & Subst Abuse Tx Therapist Name of Therapist: None 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
[2025-01-01] MEDS: ARIPiprazole 5 MG TAB PO ONE (10:17)
[2025-01-01] MEDS: IBUPROFEN 600 MG TAB PO PRN (16:12)
[2025-01-02 06:35] VITALS: BP 123/82; RESP 18; TEMP 97.7
[2025-01-02] MEDS: ARIPiprazole 5 MG TAB PO SCH (08:14)
--- NOTE | 2025-01-02 09:39 | Electrocardiogram Report ---
Test Reason : Blood Pressure : */* mmHG Vent. Rate : 63 BPM Atrial Rate : 63 BPM P-R Int : 144 ms QRS Dur : 92 ms QT Int : 408 ms P-R-T Axes : -6 -12 -20 degrees QTcB Int : 417 ms Normal sinus rhythm Minimal voltage criteria for LVH, may be normal variant ( R in aVL ) Inferior infarct , age undetermined Abnormal ECG When compared with ECG of 20-Dec-2024 06:11, Inferior infarct is now Present Confirmed by Scott Gallegos ([id number]) on 01/02/2025 9:38:41 AM Referred By: REFERRED SELF Confirmed By: Scott Gallegos
--- NOTE | 2025-01-02 09:56 | Discharge Summary ---
Date of Service January 02, 2025 History of Present Illness He presents for psychiatric admission for worsening depression and SI with plan of crashing his car in the context of multiple psychosocial stressors including intense work schedule, social isolation due to his 's demanding travel schedule and recent substance use. Woodrow presents for psychiatric admission due to worsening paranoia, anxiety and depression over the past several months in the context of increased work stress and his 's frequent travel. He reports increasing paranoid thoughts which are his most bothersome current symptom. Since he started using cocaine again he's been more suspicious and worried about what everyone is thinking and doing and saying. He sometimes thinks others are taking about him. He notes this has worsened since his began traveling more frequently for work worrying about what she might be doing since she's often traveling with peers. He has also been constantly worrying about what others are thinking or saying about him even in benign interactions at work. He also describes significant anxiety and racing thoughts. He reports his mood has been very depressed lately. While driving home from visiting family in [place] he felt like if he did not come to the hospital he would have crashed his car. He has been having frequent thoughts over recent weeks that it would be "easier" if he did not wake up in the morning and has been praying to God at night that he will in his sleep. He notes increased isolation and difficulty coping since his began traveling more for work. He also describes ongoing grief and trauma symptoms related to witnessing his best friend's many years ago including flashbacks triggered by things on TV. His sleep has always varied a lot. He has FELICITA and started a CPAP but then his machine was recalled and then it's been delay after delay and he got claustrophobic. He slept well last night after taking a dose of trazodone. 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 He has been using cocaine 10-15 times per month and spending around $200 per day on it. He reports using cocaine and alcohol together typically consuming 6-7 beers about 3 times per week when using cocaine. He states the substance use helps numb both physical pain from neuropathy as well as emotional pain and allowing him to "not care" temporarily. However he recognizes this has been destructive financially and emotionally. 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 He reports difficulty maintaining work life balance and prioritizing his health over work obligations. He is currently psychiatric medications: lamictal 25mg daily (started about 5-6 weeks ago), and buspar 5mg BID (started a week ago). Psychiatric ROS notable for no current nor history of symptoms of OCD, self-harm nor eating disorder. History of javier, last episode was a few years ago. History of possible ADHD with restlessness, difficulty sitting still, inattention, poor concentration starting in childhood. Physical Exam Vital Signs (Past 24 Hours) Last Vital Signs Temp 36.5 C 01/02/25 06:32 Pulse 56 L 01/02/25 06:33 Resp 18 01/02/25 06:32 BP 123/82 01/02/25 06:33 Pulse Ox 97 01/01/25 05:44 O2 Del Method Room Air 01/01/25 05:44 Principal Diagnosis Unspecified Depressive Disorder Psychiatric Data See daily stay summary. In short, patient was engaged with the social/therapeutic milieu of the unit, safety was maintained and the patient was cooperative with care. Medication changes included titration of lamictal for mood stabilization/depression and initiation of sertraline 50mg daily for depression/anxiety, trazodone 50mg HS for insomnia/depression, and abilify 5mg daily for paranoia, mood augmentation/stabilization and they tolerated this well. Baseline labs of fasting glucose, fasting lipid profile, and weight were preformed (see labwork results below). Recommend repeat weight in one month. Recommend repeat fasting glucose, HbA1c and fasting lipid profile every 12 weeks and then annually. If symptoms arise recommend checking BP, EKG, prolactin level as clinically indicated or relevant. A support session was not held due to quick acceptance into residential treatment program and time did not allow for this to be held and safety plan was completed prior to discharge. They participated in safety planning and in discussions about ways to seek support and recognizing warning signs and utilizing coping skills. Reviewed ways to have their safety plan and contacts easily available should thoughts of SI re-emerge in the future. Reviewed importance of seeking emergency care should SI intensify, worsen or should they feel unsafe in the future which they agree to do. On the day of discharge they stated their mood was "nervous but good nervous", "excited", "thankful" and "I'm ready" and remained future-oriented including starting residential mental health and substance use treatment, working on learning more about why he reacts to certain situations with certain emotions and continuing to connect with his family. Day of Discharge Assessment Today the patient voices readiness for discharge. They note improvement in mood and anxiety. They deny thoughts of harm to self or others. Thoughts are organized and they are clinically improved from admission. There is no evidence of psychosis. They improved in the hospital with support and medication adjustments. They agree to take medications as prescribed and keep follow-up appointments. At the time of the discharge they are deemed to be stable and appropriate for outpatient/residential treatment level of care. They are not deemed to be at imminent risk of harm to self or others. They are aware of emergency and crisis services. Knows to call 911 or go to nearest emergency care center if in a crisis which cannot be handled as an outpatient. Suicide risk assessment: Acute risk is low given improvement in mood and denial of SI, lack of access to lethal means, plan to avoid substance use, improvement in sleep, hopefulness and improvement in paranoia. Chronic risk is moderate given some non-modifiable risk factors: psychiatric co-morbid diagnoses, periods of impulsivity, prior interrupted attempt, possible mood disorder, cluster B traits vs PTSD, childhood trauma, but also with protective factors including employed, good social support, sense of responsibility to family and social supports, outpatient care in place, positive coping skills, positive problem solving, willingness to engage with treatment and self-observation. Counseled on ways to reduce acute and chronic risk including engaging with outpatient providers, using safety plan if needed, utilizing supports, taking medication, and using coping skills. Modifiable risk factors of SI and depression were addressed during hospitalization through development of new coping skills, safety planning, and medication adjustments. Discharge physical exam: See admission H&P, MSE per above and day of discharge summary. Overall, I spent a total of 35 minutes on this case including meeting with the patient, reviewing the chart, nursing report, multidisciplinary team meeting, discharge orders, anticipatory planning, safety planning, risk assessment and documentation. Transition of Care Transition Of Care Record: was reviewed with the patient Advance Directives Advance Directives Information Provided: Yes Advance Directives: No Mental Health Advance Directive: No Advance Directives on File: No Living Will: No Power of Food Checker: No Advance Directives Reason:: Declines as Mental Health Visit. 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) Stable Relationships: Yes Supportive Family: Yes Good Rapport with Provider: Yes Discharge Data Lab Results 12/29/24 12/29/24 12/29/24 10:48 11:10 13:26 WBC 6.56 RBC 5.03 Hgb 16.1 Hct 46.1 MCV 91.7 MCH 32.0 MCHC 34.9 RDW Std Deviation 40.5 RDW Coeff of [place] 12.2 Plt Count 312 MPV 9.3 L Immature Gran % (Auto) 1.2 Neut % (Auto) 66.0 Lymph % (Auto) 14.8 [place] % (Auto) 10.5 Eos % (Auto) 6.9 Baso % (Auto) 0.6 Neut # (Auto) 4.33 Lymph # (Auto) 0.97 L [place] # (Auto) 0.69 H Eos # (Auto) 0.45 Baso # (Auto) 0.04 Immature Gran # (Auto) 0.08 Sodium 137 Potassium 3.7 Chloride 100 Carbon Dioxide 31 Anion Gap 6 BUN 16 Creatinine 1.13 Est Cr Clr Drug Dosing 99.0 eGFR 77.24 BUN/Creatinine Ratio 14.2 Glucose 99 Estimat Average Glucose Hemoglobin A1c Calcium 9.7 Total Bilirubin 1.0 AST 19 ALT 25 Alkaline Phosphatase 97 Total Protein 7.9 Albumin 4.3 Globulin 3.6 Albumin/Globulin Ratio 1.2 Triglycerides Cholesterol LDL Cholesterol, Calc VLDL Cholesterol, Calc HDL Cholesterol Cholesterol/HDL Ratio 25-OH Vitamin D Total TSH 4.563 H Free T4 0.88 Urine Color Yellow Urine Appearance Clear Urine pH 6.0 Ur Specific Bradley 1.020 Urine Protein Negative Urine Glucose (UA) Negative Urine Ketones Negative Urine Blood Negative Urine Nitrite Negative Urine Bilirubin Negative Urine Urobilinogen Negative Ur Leukocyte Esterase Negative Urine Comment Salicylates < 3.0 L Urine Opiates Screen Neg Ur Methadone, Qual Neg Urine Fentanyl Screen Neg Acetaminophen < 3 L Urine Barbiturates Neg Ur Phencyclidine (PCP) Neg U Amphetamin/Meth Scrn Neg MDMA (Ecstasy) Screen Neg U Benzodiazepines Scrn Neg Ur Cocaine Metabolite Pos H U Marijuana (THC) Screen Neg Ethyl Alcohol mg/dL < 10.0 SARS-CoV-2, RNA, NAAT NEGATIVE 12/31/24 07:36 WBC RBC Hgb Hct MCV MCH MCHC RDW Std Deviation RDW Coeff of [place] Plt Count MPV Immature Gran % (Auto) Neut % (Auto) Lymph % (Auto) [place] % (Auto) Eos % (Auto) Baso % (Auto) Neut # (Auto) Lymph # (Auto) [place] # (Auto) Eos # (Auto) Baso # (Auto) Immature Gran # (Auto) Sodium Potassium Chloride Carbon Dioxide Anion Gap BUN Creatinine Est Cr Clr Drug Dosing eGFR BUN/Creatinine Ratio Glucose Estimat Average Glucose 114 Hemoglobin A1c 5.6 Calcium Total Bilirubin AST ALT Alkaline Phosphatase Total Protein Albumin Globulin Albumin/Globulin Ratio Triglycerides 184 H Cholesterol 185 LDL Cholesterol, Calc 99 VLDL Cholesterol, Calc 37 H HDL Cholesterol 49 Cholesterol/HDL Ratio 3.8 25-OH Vitamin D Total 55.1 TSH Free T4 Urine Color Urine Appearance Urine pH Ur Specific Bradley Urine Protein Urine Glucose (UA) Urine Ketones Urine Blood Urine Nitrite Urine Bilirubin Urine Urobilinogen Ur Leukocyte Esterase Urine Comment Salicylates Urine Opiates Screen Ur Methadone, Qual Urine Fentanyl Screen Acetaminophen Urine Barbiturates Ur Phencyclidine (PCP) U Amphetamin/Meth Scrn MDMA (Ecstasy) Screen U Benzodiazepines Scrn Ur Cocaine Metabolite U Marijuana (THC) Screen Ethyl Alcohol mg/dL SARS-CoV-2, RNA, NAAT Hospital Course (1) Depression: (2) PHUONG (generalized anxiety disorder): (3) Suicidal thoughts: (4) Post traumatic stress disorder (PTSD): (5) Paranoia: (6) Trauma and stressor-related disorder: (7) Obsessive compulsive disorder: (8) ADHD: (9) Insomnia: (10) Cocaine use: (11) Peripheral neuropathy: (12) History of adverse childhood experiences: (13) FELICITA (obstructive sleep apnea): Plan 01/02/2025: -Accepted to [facility] for residential mental health and substance use treatment -He feels safe and ready for discharge to [facility] 01/01/2025: -Continue current medications and tx plan. 12/31/2024: -Increase abilify to 5mg daily tomorrow 12/30/2024: The patient was admitted to the [facility] ([facility] inpatient mental health unit) on q15 min checks (behavioral with suicide precautions) for safety. The patient will participate in group, recreational, and milieu therapies and will be offered additional individual and family sessions as clinically appropriate. -Medications: * Increase lamictal to 50mg HS (will give 25mg HS tonight as got AM dose of 25mg already) * Continue Buspar 5mg BID for now, consider increase in coming days * Start sertraline 50mg HS * Continue trazodone 50mg HS * Start abilify 2.5mg daily tomorrow -SW to explore outpatient options including residential vs IOP as well as outpatient psychiatry -Symptom questionnaires provided -Fasting lipid panel, HbA1c, Vit D tomorrow AM Mental Health & Subst Abuse Tx Therapist Name of Therapist: None Apartment Locator Name of Apartment Locator: None Post Discharge Appointments Primary Care Physician Name Of Family Doctor/PCP: [place] Garcia Primary Care Provider Appointment Comment: [address] [facility], [place] [address] Discharge Plan Discharge Items Patient Disposition: Home - Self-Care Reason For Visit: UNSPECIFIED MOOD DISORDER Discharge Diagnosis: Unspecified Depressive Disorder Activity: Resume your previous activity Non-emergency contact: Primary Care Provider Call non-emergency contact if: you have any medication questions and your symptoms worsen Follow-up/Referrals: Cindy Garrido CRNP [Primary Care Provider] - Diet: Regular Addtl Attending Provider Instructions: Optional mobile apps: -Suicide safety plan -Virtual Hope Box SPECIAL CARE INSTRUCTIONS: 1. Follow through with your scheduled aftercare appointments. If unable to keep an appointment, please call to reschedule. 2. Take your medication only as prescribed. Medication should not be changed or stopped without the approval of your doctor. In the event of worsening symptoms or concerns about side effects, contact your doctor immediately. 3. Utilize new healthy coping skills, anger management skills, and stress management skills learned during your hospitalization. Journal feelings and process them with a support person. Identify stressors or situations that may result in relapse, deterioration or inappropriate behaviors and develop a plan to deal with those issues. 4. If your coping skills are ineffective and you are in crisis, contact your outpatient providers for direction. If unable to reach your providers, please call the [facility] CRISIS LINE AT , go to the [facility] walk-in center at [address], [address], [place], or go to the closest Emergency Room. 5. Avoid alcohol and un-prescribed drugs. 6. You have been provided with the Mental Health Advance Directives Pamphlet for your review. 7. Your condition is stable for discharge to outpatient level of care, but recovery is an ongoing process. Ifthoughts to harm yourself or others return, follow the safety plan developed during your stay. Planning for a safe return home includes securing weapons. Our treatment team recommends weaponsbe removed from the home until your outpatient provider reassesses your progress. In rare cases where the items themselvescannot be removed, guns and ammunitionshould be secured separatelyand keys stored by a reliable personoutside of the home. If you were admitted on an involuntary commitment, the police or other legal authorities may be involved in this process. AFTERCARE APPOINTMENTS: * Please call your insurance company prior to your scheduled appointment to confirm your aftercare providers are covered. Take your insurance information to your appointments. WHO TO CALL AND WHEN: Medical Emergencies: For questions or emergencies related to your hospital stay, please contact the Inpatient Behavioral Health Unit at [phone]. A cottrell blower is on-call 03/12 for the Behavioral Health Unit for emergencies At any time you feel your situation is an emergency, you may also call 911 immediately. National Crisis Hotline: 988 Pending Studies at Discharge: No Stand-Alone Forms: My [facility] Medications and DC Order Prescriptions: New trazodone 50 mg Tablet 50 mg PO HS 30 Days Qty: 30 0RF lamotrigine [Lamictal] 25 mg Tablet 50 mg PO HS 30 Days Qty: 60 0RF sertraline 50 mg Tablet 50 mg PO QAM 30 Days Qty: 30 0RF aripiprazole [Abilify] 5 mg Tablet 5 mg PO QAM 30 Days Qty: 30 0RF Continued atorvastatin 10 mg tablet 10 mg PO DAILY Qty: 30 2RF propranolol 60 mg capsule,extended release 24 hr 60 mg PO HS Qty: 30 3RF buspirone 5 mg tablet 5 mg PO BID Qty: 60 1RF losartan 50 mg Tablet 100 mg PO QAM Qty: 30 0RF aspirin [Children's Aspirin] 81 mg Tablet,Chewable 81 mg PO QAM Qty: 0 0RF Rx Instructions: buy over the counter cyanocobalamin (vitamin B-12) 500 mcg Tablet 1,000 mcg PO QAM Qty: 0 0RF Rx Instructions: buy over the counter Discontinued lamotrigine 25 mg tablet 25 mg PO DAILY 30 Days Qty: 30 5RF Discharge Orders: Discharge Order (Routine); Ordered 01/02/25 Ordered By: Jen Lynn Admission Data Admit Date/Time: 12/29/24 17:15 Attending Provider: Jen Lynn Admit Provider: Jen Lynn Primary Care Provider: Cindy Garrido Other Interventions: Discharge Summary Assessment (RN) Last Done: 01/02/25 10:22 PSY Interdisciplinary Discharge Planning Last Done: 01/02/25 10:22 Coding Level of Care Code 46332 D/C day mgmt > 30 min Diagnoses Depression F32.A PHUONG (generalized anxiety disorder) F41.1 Suicidal thoughts R45.851 Post traumatic stress disorder (PTSD) F43.10 Paranoia F22 Trauma and stressor-related disorder F43.9 Obsessive compulsive disorder F42.9 ADHD F90.9 Insomnia G47.00 Cocaine use F14.90 Peripheral neuropathy G62.9 History of adverse childhood experiences Z62.9 FELICITA (obstructive sleep apnea) G47.33
[2025-01-02 10:25] VITALS: PULSE 50
== END 2025-01-02 10:37 | disposition home or self-care (01) | DRG 881 ==
LOC: ED 10:15 → 3S 17:06